=== PATIENT | female | born 1985 | race Caucasian/White ===

== ENCOUNTER → 2016-03-23 | Outpatient (CLI) | payer OTHER ==
[~2016-03-23] MED LIST: ALBU17IN INH; Escitalopram Oxalate PO; FLUD1TA PO; HUMA100I5 SC; INSUDET SC; LANTINJ4 SC; LEVE1INJ5 SC; MAG400TA PO; MIDO5TA PO; MIRT30TA3 PO; NEUR100C PO; POTA10CA PO; TRAZ50TA4 PO; VENL75TA2 PO; VITMTA PO
--- NOTE | 2016-03-23 20:54 | REP ---
Clinical: Lower back pain . Technique: AP, lateral, bilateral oblique, and coned-down views. Findings: Alignment and lordosis is maintained. The vertebral bodies including transverse process and spinous processes are intact and normal. There is no evidence for acute fracture / compression injury or subluxation. No evidence for spondylolysis or spondylolisthesis. No significant degenerative change is noted. Impression: Normal lumbosacral spine radiograph series. Signed by Esteban Connolly MD 03/23/2016 08:45 P
--- NOTE | 2016-03-23 21:03 | REP ---
Clinical: thoracic back pain. Technique: AP, lateral, and swimmers views. Findings: Alignment and kyphosis is maintained. Vertebral bodies intact. No acute fracture / compression injury or subluxation. No degenerative changes. Paravertebral soft tissues are normal. Impression: Normal thoracic spine series. Signed by Esteban Connolly MD 03/23/2016 08:55 P
== END ==
LOC: M LRY 15:47
PROVIDERS: ATTEND Family Medicine
DX: M54.5 Low back pain (principal); G89.29 Other chronic pain

== ENCOUNTER → 2016-03-29 | Outpatient (CLI) | payer OTHER ==
--- NOTE | 2016-03-29 16:33 | REP ---
KUB: Single view: History: Foreign body in the colon. Findings: The bowel gas pattern is normal. No opaque foreign body is appreciated. There is air and stool in a nondistended colon. No small or large bowel dilation is seen. Flank stripes are intact. Impression: Normal bowel gas pattern. No opaque foreign body seen. Signed by Gilbert Blunt MD 03/29/2016 04:35 P
== END ==
LOC: M RAD 15:21
PROVIDERS: ATTEND Internal Medicine Gastroenterology
DX: T18.4XXA Foreign body in colon, initial encounter (principal); X58.XXXA Exposure to other specified factors, initial encounter

== ENCOUNTER → 2016-04-13 | Outpatient (CLI) | payer OTHER ==
[2016-04-13 17:14] LABS: ANION GAP 6 MEQ/L (8-16); BLOOD UREA NITROGEN 26 MG/DL (7-18); CALCIUM LEVEL 9.6 MG/DL (8.5-10.1); CARBON DIOXIDE LEVEL 34 MEQ/L (21-32); CHLORIDE LEVEL 102 MEQ/L (98-107); CREATININE FOR GFR 0.67 MG/DL (0.55-1.02); GLOMERULAR FILTRATION RATE > 60.0 (>60); GLUCOSE, FASTING 117 MG/DL (70-105); POTASSIUM SERUM 3.7 MEQ/L (3.5-5.1); SODIUM LEVEL 142 MEQ/L (136-145)
== END ==
LOC: M LAB 15:59
PROVIDERS: ATTEND Internal Medicine Endocrinology, Diabetes & Metabolism
DX: E22.0 Acromegaly and pituitary gigantism (principal)

== ENCOUNTER → 2016-04-14 | Outpatient (CLI) | payer OTHER ==
--- NOTE | 2016-04-14 14:37 | REP ---
MR BRAIN WITHOUT AND WITH CONTRAST: HISTORY: Acromegaly. Contrast: ProHance 5 mL. There are no areas of abnormal signal intensity in the brain. There is no intraparenchymal hemorrhage, infarct, mass or midline shift. There is no abnormal enhancement. The ventricular system is normal in appearance. There is no extracerebral collection. The pituitary gland is normal in size and signal intensity. The pituitary gland measures 6.0 mm in height. There is homogeneous enhancement with contrast. The infundibulum is midline. The cavernous sinuses, optic chiasm and hypothalamus are normal in appearance. Mucosal thickening is present in the ethmoid, sphenoid, and right maxillary sinuses. IMPRESSION: There is no intracranial lesion. Signed by Thomas Elaine MD 04/14/2016 02:41 P
== END ==
LOC: M RAD 12:45
PROVIDERS: ATTEND Internal Medicine Endocrinology, Diabetes & Metabolism
DX: E22.0 Acromegaly and pituitary gigantism (principal)

== ENCOUNTER → 2016-07-05 | Outpatient (CLI) | payer OTHER ==
[2016-07-05 15:57] LABS: FREE T4 0.96 NG/DL (0.76-1.46); THYROXINE (T4) 5.2 UG/DL (4.5-12.0)
== END ==
LOC: M LAB 14:44
PROVIDERS: ATTEND Internal Medicine Endocrinology, Diabetes & Metabolism
DX: E27.40 Unspecified adrenocortical insufficiency (principal); E03.9 Hypothyroidism, unspecified

== ENCOUNTER → 2016-07-12 | Outpatient (CLI) | payer OTHER ==
[2016-07-12 13:25] LABS: BASO # 0.1 K/mm3 (0.0-0.2); BASO % 0.3 % (0.0-1.0); EOS # 0.8 K/mm3 (0.0-0.50); EOS % 4.2 % (0.0-3.0); LARGE UNSTAINED CELL # 0.3 K/mm3 (0.0-0.4); LARGE UNSTAINED CELL % 1.6 % (0.0-4.0); LYMPH # 4.3 K/mm3 (1.5-4.5); MEAN CORPUSCULAR HEMOGLOBIN 30.1 pg (27.0-33.0); MEAN CORPUSCULAR HGB CONC 33.5 g/dl (32.0-36.5); MEAN CORPUSCULAR VOLUME 89.8 fl (80.0-96.0); MONO # 0.9 K/mm3 (0.0-0.8); NEUTROPHILS # 11.7 K/mm3 (1.8-7.7); NEUTROPHILS % 65.9 % (36.0-66.0); PLATELET COUNT, AUTOMATED 255 k/mm3 (150-450); RED CELL DISTRIBUTION WIDTH 12.3 % (11.5-14.5); WHITE BLOOD COUNT 17.7 K/mm3 (4.0-10.0)
[2016-07-12 13:47] LABS: ALBUMIN 3.3 GM/DL (3.2-5.2); ALBUMIN/GLOBULIN RATIO 0.89 (1.00-1.93); ALKALINE PHOSPHATASE 95 U/L (45-117); ALT/SGPT 51 U/L (12-78); ANION GAP 6 MEQ/L (8-16); AST/SGOT 19 U/L (15-37); BILIRUBIN,TOTAL 0.4 MG/DL (0.2-1.0); BLOOD UREA NITROGEN 28 MG/DL (7-18); CALCIUM LEVEL 8.8 MG/DL (8.5-10.1); CARBON DIOXIDE LEVEL 34 MEQ/L (21-32); CHLORIDE LEVEL 98 MEQ/L (98-107); CREATININE FOR GFR 0.86 MG/DL (0.55-1.02); GLOMERULAR FILTRATION RATE > 60.0 (>60); GLUCOSE, FASTING 204 MG/DL (70-105); SODIUM LEVEL 138 MEQ/L (136-145)
== END ==
LOC: M LAB 12:43
PROVIDERS: ATTEND Family Medicine
DX: T78.40XA Allergy, unspecified, initial encounter (principal)

== ENCOUNTER → 2016-09-30 | Outpatient (REF) | payer OTHER ==
[~2016-09-30] MED LIST changes: +BASA100I SC; +CLON0.5T PO; +FLUD0.1T PO; -FLUD1TA PO; +FLUV100T2 PO; +INSUHUMDS SC; +METO10TA2 PO; +MIDO2.5T PO; +QUET5TAB PO; +SUCR1TA PO; +TRAZ50TA11 PO; -TRAZ50TA4 PO
[2016-09-30 14:42] LABS: ANION GAP 6 MEQ/L (8-16); BLOOD UREA NITROGEN 34 MG/DL (7-18); CARBON DIOXIDE LEVEL 33 MEQ/L (21-32); CHLORIDE LEVEL 98 MEQ/L (98-107); GLOMERULAR FILTRATION RATE > 60.0 (>60); GLUCOSE, FASTING 260 MG/DL (70-105); POTASSIUM SERUM 4.3 MEQ/L (3.5-5.1); SODIUM LEVEL 137 MEQ/L (136-145)
== END ==
LOC: M SFHCLERA 11:13
PROVIDERS: ATTEND Family Medicine
DX: R60.9 Edema, unspecified (principal); I95.9 Hypotension, unspecified

== ENCOUNTER 2016-11-23 08:50 | Inpatient (IN) | payer MEDICAID, OTHER, SELFPAY ==
[~2016-11-23] VITALS: Ht 167.6 cm; Wt 71.9 kg
[~2016-11-23 08:50] MED LIST changes: -BASA100I SC; -CLON0.5T PO; -FLUV100T2 PO; -INSUHUMDS SC; -METO10TA2 PO; -MIDO2.5T PO; -QUET5TAB PO; -SUCR1TA PO
[2016-11-23] MEDS ORDERED: FLUV100T2 PO (09:11)
[2016-11-23] MEDS ORDERED: FLUD0.1T PO (09:11)
[2016-11-23] MEDS ORDERED: QUET5TAB PO (09:11)
[2016-11-23] MEDS ORDERED: BASA100I SC (09:11)
[2016-11-23] MEDS ORDERED: NS 1,000 ML IV ONE ×2 (09:45→13:15)
[2016-11-23 09:58] LABS: VENOUS O2 SATURATION 65.9 % (60.0-80.0); VENOUS PARTIAL PRESSURE O2 34.9 mmHg (30.0-50.0); VENOUS STANDARD HCO3 28.1 MEQ/L; VENOUS TOTAL CO2 32.3 MEQ/L (24.0-28.0)
[2016-11-23] MEDS ORDERED: PROMETHAZINE INJ 25 MG/ML VIAL (J2550) IV ONE (10:00)
[2016-11-23 10:02] LABS: BASO % 0.1 % (0.0-1.0); EOS # 0.2 K/mm3 (0.0-0.50); EOS % 0.9 % (0.0-3.0); LARGE UNSTAINED CELL # 0.1 K/mm3 (0.0-0.4); LARGE UNSTAINED CELL % 0.3 % (0.0-4.0); LYMPH # 0.9 K/mm3 (1.5-4.5); LYMPH % 5.1 % (24.0-44.0); MEAN CORPUSCULAR HEMOGLOBIN 29.7 pg (27.0-33.0); MEAN CORPUSCULAR VOLUME 87.5 fl (80.0-96.0); MONO # 0.5 K/mm3 (0.0-0.8); MONO % 2.8 % (0.0-5.0); NEUTROPHILS # 16.1 K/mm3 (1.8-7.7); NEUTROPHILS % 90.7 % (36.0-66.0); PLATELET COUNT, AUTOMATED 253 k/mm3 (150-450); RED CELL DISTRIBUTION WIDTH 11.9 % (11.5-14.5); WHITE BLOOD COUNT 17.7 K/mm3 (4.0-10.0)
[2016-11-23 11:08] LABS: CONTROL LINE HCG INT CTR LINE PRESENT
[2016-11-23 11:18] LABS: ALBUMIN 3.5 GM/DL (3.2-5.2); ALBUMIN/GLOBULIN RATIO 0.95 (1.00-1.93); ALKALINE PHOSPHATASE 84 U/L (45-117); ALT/SGPT 22 U/L (12-78); ANION GAP 14 MEQ/L (8-16); AST/SGOT 12 U/L (15-37); BILIRUBIN,DIRECT 0.1 MG/DL (0.0-0.2); BILIRUBIN,TOTAL 0.5 MG/DL (0.2-1.0); BLOOD UREA NITROGEN 28 MG/DL (7-18); CALCIUM LEVEL 8.3 MG/DL (8.5-10.1); CARBON DIOXIDE LEVEL 29 MEQ/L (21-32); CHLORIDE LEVEL 101 MEQ/L (98-107); CREATININE FOR GFR 0.93 MG/DL (0.55-1.02); GLOMERULAR FILTRATION RATE > 60.0 (>60); GLUCOSE, FASTING 186 MG/DL (70-105); POTASSIUM SERUM 3.5 MEQ/L (3.5-5.1); SODIUM LEVEL 144 MEQ/L (136-145); TOTAL PROTEIN 7.2 GM/DL (6.4-8.2)
[2016-11-23] MEDS ORDERED: ISOVUE-370 76% 100ML VIAL (Q9967) As Ordered ONE (12:02)
[2016-11-23] MEDS ORDERED: PANTOPRAZOLE 40MG INJ (PROTONIX) (C9113) IV ONE (13:00)
[2016-11-23] MEDS ORDERED: ONDANSETRON 4MG/2ML VIAL (J2405) IV ONE (13:15)
[2016-11-23] MEDS ORDERED: INSUHUMDS SC (15:18)
[2016-11-23] MEDS ORDERED: CLON0.5T PO (15:18)
[2016-11-23] MEDS ORDERED: ALBU17IN INH (15:18)
[2016-11-23] MEDS: NS 1,000 ML IV SCH (16:50)
[2016-11-23] MEDS ORDERED: clonazePAM 0.5 MG TAB PO PRN (17:00)
[2016-11-23] MEDS ORDERED: ACETAMINOPHEN TAB 650MG DOSE (2X325MG) PO PRN (17:00)
[2016-11-23] MEDS ORDERED: GLUCOSE 4 GM CHEW TABLET PO PRN (17:00)
[2016-11-23] MEDS ORDERED: GLUCAGON FOR INJ 1 MG VIAL (J1610) SC PRN (17:00)
[2016-11-23] MEDS ORDERED: ALBUTEROL 90 MCG/ACT 8GM HFA INHALER INH PRN (17:00)
[2016-11-23] MEDS ORDERED: DEXTROSE 50% 50 ML SYRINGE IV PRN (17:00)
[2016-11-23] MEDS: HumaLOG INSULIN (NovoLOG) PER UNIT SC SCH ×2 (17:30→21:00)
--- NOTE | 2016-11-23 18:05 | REP ---
CT abdomen pelvis with IV but without oral contrast: History: Abdominal pain. CT contrast dose: 100 ml of Isovue [address] findings: Preliminary digital air pollution specialist radiograph demonstrates a dextroconvex curvature. Bowel gas pattern is normal. The lung bases are clear. The liver and the spleen are normal in size and homogeneous in texture. There is fluid in the distal esophagus consistent with reflux at the time of the exam. Some left coronary artery vascular calcification is observed in this young woman. The gallbladder is unremarkable. There are calcifications within the head and body of the pancreas consistent with chronic pancreatitis. No pancreatic mass or pseudocyst is seen. The kidneys enhance symmetrically and are morphologically intact. No adrenal lesion is seen on either side. Normal caliber aorta is noted. Small and large intestinal bowel loops are unremarkable. A normal appendix is seen medial to the cecal tip. There are low density areas in the cervix consistent with Nabothian cysts. No uterine masses seen. There is a 5.9 x 5.0 x 5.8 cm cystic enlargement of the left ovary. Right ovary is unremarkable. No abdominal wall defect is seen. No pelvic mass or adenopathy is seen. Bone window settings show no bony destructive lesion. Impression: 1. Calcifications in the pancreas suggesting chronic pancreatitis. 2. Fluid within the distal esophagus question reflux. 3. Coronary artery vascular calcifications seen in this young woman. 4. 5.9 cm cystic enlargement left ovary. Signed by Gilbert Blunt MD 11/24/2016 07:59 A
--- NOTE | 2016-11-23 18:16 | HPEPDOC ---
General Date of Admission Nov 23, 2016 at 15:55 Primary Care Physician: DEBBIE DIAZ MD Attending Physician: GLORIA LUTHER MD Chief Complaint The patient is a 30-year-old female admitted with a reason for visit of Intractable Vomiting. Source: Patient, Family, RN notes reviewed, Old records Exam Limitations: No limitations Timing/Duration: Day(s) (2 days) Associated Symptoms: Chills, Loss of appetite, Nausea, Vomiting, Weakness History of Present Illness Ms. Moore is a 30 year old female who presents to [facility] Department with nausea and vomiting. She is accompanied by her mother. Past medical history is significant for diabetes mellitus type I diagnosed in 2016, hypotension, anxiety, obsessive-compulsive disorder, asthma, depression, food allergy, history of staphylococcus aureus urinary tract infection, history of streptococcus pneumoniae bacteremia. Patient reports nausea for the last two days and vomiting since 6PM last evening. She reports cyclic, forceful vomiting every 15 minutes since its onset. She describes the vomitus as brown to clear in color without visible blood. She denies changes to her diet. Has been unable to keep any liquids, foods, or medications down. Weight has remained stable. Also admits to diffuse , crampy, and intermittent abdominal pain that started two days ago. She reports regular bowel movements without noticing visible blood. She does report an episode of non-bloody diarrhea that lasted a few weeks about one and a half months ago. Her mother had similar symptoms, but hers only lasted a couple of days. Between the cessation of the diarrhea and the initiation of the nausea the patient reports good health. Denies fever, but reports feeling warm, clammy, having night sweats, and having chills. Also describes an intermittent headache. Admits to low back pain. Besides positive review of systems listed above, all other review of systems were negative. Patient reports a diagnosis of diabetes mellitus that was made in 2016. Her mother reports that she was in a "coma", but eventually recovered. In the time since her diagnosis her mother reports that her daughter has had an extensive endocrinological and gastrointestinal work-up, but it has thus far been negative. She also reports that her daughter had cessation of her menstrual cycle, but that has since returned and she has had regular menstrual cycles for the last several months. They have been regular as they were before the diagnosis of diabetes. Mother also reports that her daughter lost a significant amount of weight (40 pounds) after the diagnosis of her diabetes. She was questioned regarding an eating disorder which she refutes. Before the diagnosis of diabetes the patient had recently moved to [place] and retained an apartment. She subsequently became ill and has since not been back to [place] permanently. It is the hope that patient's health improves and she is able to return to [place]. Hospitalist service was consulted and patient was admitted for further medical management. Home Medications Scheduled (Basaglar Kwikpen) 100 Unit/Ml Inj, 15 UNITS SC QAM, (Reported) Fludrocortisone Acetate (Fludrocortisone Acetate) 0.1 Mg Tab, 0.5 TAB PO 1XWK, ( Reported) THURSDAYS Fluvoxamine Maleate (Fluvoxamine Maleate) 100 Mg Tab, 100 MG PO QHS, (Reported) Insulin Human Lispro (Humalog) 1 Units/0.01 Ml Inj, 1 DOSE SC AC, (Reported) PER SLIDING SCALE Quetiapine Fumerate (Quetiapine Fumarate) 50 Mg Tab, 50 MG PO QHS, (Reported) Scheduled PRN Albuterol Sulfate (Ventolin Hfa) 200 Puff/8 Gm Aers, 2 PUFF INH Q4H PRN for SHORTNESS OF BREATH, (Reported) Clonazepam (Clonazepam) 0.5 Mg Tab, 0.5 MG PO BID PRN for ANXIETY, (Reported) Allergies Coded Allergies: Egg Yolk (Unverified Allergy, Intermediate, Rash, 12/04/15) Bee Venom (Unverified Allergy, Unknown, 07/31/15) Insulin Glargine (Unverified Allergy, Unknown, SKIN RASH, 11/23/16) FROM [facility] INSULIN NUTS (Unverified Allergy, Unknown, 07/31/15) Shellfish Allergy (Unverified Allergy, Unknown, 07/31/15) Past Medical History Medical History 1. Diabetes mellitus, type I 2. Hypotension 3. Anxiety 4. Depression 5. Obsessive-compulsive disorder 6. Asthma 7. Food allergy 8. History of Staphylococcus aureus urinary tract infection 9. History of Streptococcus pneumoniae bacteremia Surgical History 1. Adenoidectomy 2. Tympanostomy tubes 3. Sinus surgery 4. Transthoracic echocardiogram 5. Triple lumen catheter insertion and subsequent removal Family History Father: Alive, diabetes mellitus, type II Mother: Alive, healthy No reported autoimmune disorders Social History Lives independently with parents Has apartment in [place] Diabetes managed at the [facility] Denies tobacco use Denies alcohol use Denies illicit drug use Denies travel Review of Symptoms Constitutional: Reports: Chills, Night Sweats, Weakness, Denies: Fever, Weight Loss Eyes: Denies: Pain, Vision change, Conjunctivae inflammation, Eyelid inflammation, Redness ENT: Reports: Head Aches, Sore Throat (from vomiting), Denies: Dysphagia, Sinus Congestion, Post Nasal Drip, Epistaxis Skin: Reports: Dry, Other (multiple excoriations on upper and lower extremities , ), Denies: Rash, Lesions, Jaundice Pulmonary: Denies: Dyspnea, Cough, Pleuritic Chest Pain Cardiovascular: Reports: Edema (bilateral ankles), Denies: Chest Pain, Palpitations, Orthopnea, Paroxysmal Noc. Dyspnea, Lt Headedness Gastrointestinal: Reports: Nausea, Vomiting, Abdominal Pain (diffuse, intermittent), Denies: Diarrhea, Constipation, Melena, Hematochezia Genitourinary: Denies: Dysuria, Frequency, Incontinence, Hematuria, Retention Hematologic: Denies: Bruising, Bleeding Excessively, Petecchia, Purpura Endocrine: Denies: Polydipsia, Polyphagia, Polyuria Musculoskeletal: Reports: Back Pain, Denies: Neck Pain, Joint Pain, Muscle Pain Neurological: Reports: Weakness, Denies: Numbness Physical Examination General Exam: Positive: Alert, Cooperative Eye Exam: Positive: PERRLA, Conjunctiva & lids normal, EOMI, Negative: Sclera icteric, Ptosis ENT Exam: Positive: Atraumatic, Mucous membr. moist/pink, Pharynx Normal, Tongue Midline, Nares Patent, Negative: Pharyngeal Edema Neck Exam: Positive: Supple, +2 carotid pulse wo bruit, Negative: JVD, thyromegaly, Lymphadenopathy Chest Exam: Positive: Clear to auscultation, Normal air movement Heart Exam: Positive: Rate Normal, Tachycardic, Normal S1, Normal S2, Negative: Gallops, Murmurs, Rubs Telemetry: Positive: Tachycardia Abdomen Exam: Positive: Normal bowel sounds, Soft, Tenderness (to palpitation) , Negative: Hepatospenomegaly, Mass, Hernia Extremity Exam: Positive: Normal pulses, Negative: Clubbing, Cyanosis, Edema, Tenderness, Swelling Skin Exam: Positive: Other skin issue (excoriations on upper and lower extremities, brown-mahoney appearance to skin) Neuro Exam: Positive: Normal Speech, Strength at 5/5 X4 ext, Cranial Nerves 3- 12 NL Vital Signs Vital Signs Date Time Temp Pulse Resp B/P (MAP) Pulse Ox O2 Delivery O2 Flow Rate FiO2 11/23/16 12:11 99.7 11/23/16 10:12 18 98 11/23/16 09:04 112 Height (in): 63.64 Laboratory Data Labs 24H Laboratory Tests 2 11/23/16 09:44: White Blood Count 17.7H, Red Blood Count 4.39, Hemoglobin 13.1, Hematocrit 38.4 , Mean Corpuscular Volume 87.5, Mean Corpuscular Hemoglobin 29.7, Mean Corpuscular Hemoglobin Concent 34.0, Red Cell Distribution Width 11.9, Platelet Count 253, Neutrophils (%) (Auto) 90.7H, Lymphocytes (%) (Auto) 5.1L, Monocytes (%) (Auto) 2.8, Eosinophils (%) (Auto) 0.9, Basophils (%) (Auto) 0.1, Neutrophils # (Auto) 16.1H, Lymphocytes # (Auto) 0.9L, Monocytes # (Auto) 0.5, Eosinophils # (Auto) 0.2, Basophils # (Auto) 0.0, Large Unclassified Cells % 0.3 , Large Unclassified Cells # 0.1, Blood Gas Bicarbonate Standard 28.1, Venous Blood pH 7.407, Venous Blood Partial Pressure CO2 50.0, Venous Blood Partial Pressure O2 34.9, Venous Blood Total Carbon Dioxide 32.3H, Venous Blood HCO3 30.8H, Venous Blood Oxygen Saturation 65.9, Venous Blood Base Excess 5.0H 11/23/16 10:38: Anion Gap 14, Glomerular Filtration Rate > 60.0, Calcium Level 8.3L, Aspartate Amino Transf (AST/SGOT) 12L, Alanine Aminotransferase (ALT/SGPT) 22, Alkaline Phosphatase 84, Total Bilirubin 0.5, Direct Bilirubin 0.1, Total Protein 7.2, Albumin 3.5, Albumin/Globulin Ratio 0.95L, Lipase 42L, Human Chorionic Gonadotropin, Qual NEGATIVE CBC/BMP Laboratory Tests 11/23/16 09:44 Red Blood Count 4.39, Mean Corpuscular Volume 87.5, Mean Corpuscular Hemoglobin 29.7, Mean Corpuscular Hemoglobin Concent 34.0, Red Cell Distribution Width 11.9 , Neutrophils (%) (Auto) 90.7 H, Lymphocytes (%) (Auto) 5.1 L, Monocytes (%) ( Auto) 2.8, Eosinophils (%) (Auto) 0.9, Basophils (%) (Auto) 0.1, Neutrophils # ( Auto) 16.1 H, Lymphocytes # (Auto) 0.9 L, Monocytes # (Auto) 0.5, Eosinophils # (Auto) 0.2, Basophils # (Auto) 0.0 11/23/16 10:38 Assessment/Plan This is a 30-year-old female with a past medical history is significant for diabetes mellitus type I diagnosed in 2016, hypotension, anxiety , obsessive-compulsive disorder, asthma, depression, food allergy, history of staphylococcus aureus urinary tract infection, history of streptococcus pneumoniae bacteremia who presents with nausea and vomiting. Etiology unclear at this time. Plan / VTE VTE Prophylaxis Ordered?: Yes (TEDs, sequentials, knee high compression, heparin 5,000 units SC every 8 hours) Plan Plan Nausea and vomiting Unclear etiology at this time. Evaluating for underlying celiac disease. Obtaining GI panel. Ordered gastrointestinal small bowel follow-through to evaluate for underlying gastroparesis. Could consider obtaining out-patient EGD and colonoscopy to evaluate for crohn's disease / ulcerative colitis. Obtain LFTs. Obtain orthostatic VS. Obtain iron studies. Obtain TSH. Obtain lactic acid. Provide zofran and compazine as needed for nausea. NPO for the time being. NS @ 75 mLs/hr for rehydration. SIRS Tachycardia and leukocytosis without known infection at this time. Obtain urinalysis and culture. Obtain blood cultures. Diabetes mellitus, type I SSI and hypoglycemic protocol. Hypotension Continue current home medication regimen of fludrocortisone. Anxiety/depression Continue current home medications of fluvoxamine and seroquel. Asthma Continue current home medication of proventil. Disposition Admit: Medical-surgical unit Anticipated hospitalization: 2 nights Attending: Dr. Valerio IVF: Initiate (NS @ 75 mLs/hr) Diet: Make NPO Activity: Continue Current (OOB ad pamela to chair with assistance) Diagnostics: Check Labs, Repeat Labs in AM, Nuclear Med Study Anticipated Discharge: Home GIUSEPPE BALLESTEROS Nov 23, 2016 18:16
[2016-11-23 19:08] LABS: VITAMIN B12 LEVEL 838 PG/ML
[2016-11-23 19:09] LABS: FERRITIN 44 NG/ML (8-252); FOLATE > 24.0 NG/ML; PERCENT SATURATION 7.1 % (13.2-45.0); TOTAL IRON BINDING CAPACITY 353 UG/DL (250-450)
[2016-11-23] MEDS: fluvoxaMINE MALEATE 50 MG TAB PO SCH (21:00)
[2016-11-23] MEDS: QUEtiapine FUMARATE 50 MG TAB PO SCH (21:00)
[2016-11-23] MEDS: HEPARIN SOD (PORCINE) 5000 UNITS/ML VIAL SC SCH (21:48)
[2016-11-23 22:20] VITALS: BP 119/70
[2016-11-23] MEDS: ONDANSETRON 4MG/2ML VIAL (J2405) IV PRN (22:33)
[2016-11-24 02:00] VITALS: BP 108/57
[2016-11-24] MEDS: HEPARIN SOD (PORCINE) 5000 UNITS/ML VIAL SC SCH ×4 (05:09→21:16)
[2016-11-24 06:00] VITALS: BP 101/55
[2016-11-24] MEDS: NS 1,000 ML IV SCH (06:10)
[2016-11-24 07:05] LABS: BASO % 0.2 % (0.0-1.0); EOS # 0.1 K/mm3 (0.0-0.50); EOS % 0.9 % (0.0-3.0); LARGE UNSTAINED CELL # 0.3 K/mm3 (0.0-0.4); LARGE UNSTAINED CELL % 1.8 % (0.0-4.0); LYMPH # 2.9 K/mm3 (1.5-4.5); LYMPH % 20.1 % (24.0-44.0); MEAN CORPUSCULAR HEMOGLOBIN 30.3 pg (27.0-33.0); MEAN CORPUSCULAR HGB CONC 34.6 g/dl (32.0-36.5); MEAN CORPUSCULAR VOLUME 87.7 fl (80.0-96.0); MONO # 0.9 K/mm3 (0.0-0.8); MONO % 6.2 % (0.0-5.0); NEUTROPHILS # 10.4 K/mm3 (1.8-7.7); NEUTROPHILS % 70.9 % (36.0-66.0); PLATELET COUNT, AUTOMATED 236 k/mm3 (150-450); RED CELL DISTRIBUTION WIDTH 12.3 % (11.5-14.5); WHITE BLOOD COUNT 14.6 K/mm3 (4.0-10.0)
[2016-11-24 07:26] LABS: ALBUMIN 2.7 GM/DL (3.2-5.2); ALBUMIN/GLOBULIN RATIO 0.73 (1.00-1.93); ALKALINE PHOSPHATASE 66 U/L (45-117); ALT/SGPT 17 U/L (12-78); ANION GAP 11 MEQ/L (8-16); AST/SGOT 13 U/L (15-37); BILIRUBIN,TOTAL 0.3 MG/DL (0.2-1.0); BLOOD UREA NITROGEN 21 MG/DL (7-18); CALCIUM LEVEL 7.5 MG/DL (8.5-10.1); CARBON DIOXIDE LEVEL 29 MEQ/L (21-32); CHLORIDE LEVEL 107 MEQ/L (98-107); CREATININE FOR GFR 0.64 MG/DL (0.55-1.02); GLOMERULAR FILTRATION RATE > 60.0 (>60); GLUCOSE, FASTING 42 MG/DL (70-105); POTASSIUM SERUM 3.1 MEQ/L (3.5-5.1); SODIUM LEVEL 147 MEQ/L (136-145); TOTAL PROTEIN 6.4 GM/DL (6.4-8.2)
[2016-11-24] MEDS: HumaLOG INSULIN (NovoLOG) PER UNIT SC SCH ×4 (07:30→21:00)
[2016-11-24] MEDS ORDERED: KCL 40MEQ IN D5/NS 1000ML 1,000 ML IV SCH (09:00)
[2016-11-24] MEDS: ONDANSETRON 4MG/2ML VIAL (J2405) IV PRN ×3 (10:58→23:55)
[2016-11-24] MEDS: POTASSIUM CHLORIDE INJ 40 MEQ in D5W/0.9% SODIUM CHLORIDE 1,000 ML IV SCH (10:58)
[2016-11-24] MEDS ORDERED: E-Z-HD 98% w/w 340GM SUSP BTL As Ordered ONE (11:45)
[2016-11-24] MEDS ORDERED: E-Z-GAS II EFFERVESCENT PACKET (SODIUM BICARB./CITRIC ACID/SIMETHICONE) As Ordered ONE (11:45)
[2016-11-24] MEDS ORDERED: E-Z-PAQUE 96% w/w SUSP 176GM BTL As Ordered ONE (11:45)
--- NOTE | 2016-11-24 13:41 | IPNPDOC ---
Subjective Date Seen The patient was seen on 11/24/16. Subjective Chief Complaint/HPI The patient is a 30-year-old female admitted with a reason for visit of Intractable Vomiting. Events since last encounter patient could not do the gastric emptying study as she is allergic to egg, could not do the upper Gi follow through as she got nauseas while drinking the barium and then threw up. Will request for the gastric emptying study from [place] , wants to eat something so will start her on diet. Had hypoglycemia this am on dextrose infusion now. Vomited only once since yesterday , no abdominal pain , no diarrhea. Objective Physical Examination General Exam: Positive: Alert, Cooperative Eye Exam: Positive: PERRLA, Conjunctiva & lids normal, EOMI, Negative: Sclera icteric, Ptosis ENT Exam: Positive: Atraumatic, Mucous membr. moist/pink, Pharynx Normal, Tongue Midline, Nares Patent, Negative: Pharyngeal Edema Neck Exam: Positive: Supple, +2 carotid pulse wo bruit, Negative: JVD, thyromegaly, Lymphadenopathy Chest Exam: Positive: Clear to auscultation, Normal air movement Heart Exam: Positive: Rate Normal, Tachycardic, Normal S1, Normal S2, Negative: Gallops, Murmurs, Rubs Telemetry: Positive: Tachycardia Abdomen Exam: Positive: Normal bowel sounds, Soft, Tenderness (to palpitation) , Negative: Hepatospenomegaly, Mass, Hernia Extremity Exam: Positive: Normal pulses, Negative: Clubbing, Cyanosis, Edema, Tenderness, Swelling Skin Exam: Positive: Other skin issue (excoriations on upper and lower extremities, brown-mahoney appearance to skin) Neuro Exam: Positive: Normal Speech, Strength at 5/5 X4 ext, Cranial Nerves 3- 12 NL Assessment /Plan Problems (1) Intractable vomiting Status: Acute Problem Text: may have gastroparesis will get result of previous gastric emptying study from [facility]. continue with zofran and compazine. continue IVF. continue PPI (2) Electrolyte disturbance Status: Acute Problem Text: hypokalemia being replaced. (3) Diabetes Status: Chronic Problem Text: type 1 diabetes diagnosed in 2016 patient hypoglycemic this am will hold long acting insulin for now, start the patient on diet. will continue lispro sliding scale. (4) OCD (obsessive compulsive disorder) Status: Chronic Problem Text: also has anxiety and depression will continue with home medications. (5) Protein-calorie malnutrition Status: Chronic (6) Asthma Status: Chronic (7) Chronic pancreatitis Status: Chronic Problem Text: has pancreatic calcifications in CT abdomen. (8) Neurodermatitis Status: Chronic Plan/VTE VTE Prophylaxis Ordered?: Yes (TEDs, sequentials, knee high compression, heparin 5,000 units SC every 8 hours) Plan IVF: Initiate (NS @ 75 mLs/hr) Diet: Make NPO Activity: Continue Current (OOB ad pamela to chair with assistance) Diagnostics: Check Labs, Repeat Labs in AM, Nuclear Med Study Anticipated Discharge: Home VS, I&O, 24H, Fishbone Vital Signs/I&O Vital Signs Date Time Temp Pulse Resp B/P (MAP) Pulse Ox O2 Delivery O2 Flow Rate FiO2 11/24/16 06:00 99.1 76 16 101/55 (70) 96 Room Air I&O- Last 24 Hours up to 6 AM 11/24/16 06:00 Intake Total 2000 ml Output Total 100 ml Balance 1900 ml Laboratory Data 24H LABS Laboratory Tests 2 11/23/16 14:58: Bedside Glucose (Misc Panel) 122H 11/23/16 17:45: Bedside Glucose (Misc Panel) 105 11/23/16 18:40: Lactic Acid Level 1.2 11/23/16 20:02: Urine Appearance CLOUDYH, Urine Color YELLOW, Urine pH 5.0, Urine Specific [place] 1.047, Urine Protein NEGATIVE, Urine Glucose (UA) NEGATIVE, Urine Ketones 1+H, Urine Urobilinogen 0.2, Urine Bilirubin NEGATIVE, Urine Leukocyte Esterase 3+H, Urine Blood 1+H, Urine Nitrite NEGATIVE, Urine WBC (Auto) TNTCH, Urine RBC (Auto) 4H, Urine Hyaline Casts (Auto) 0, Urine Bacteria (Auto) 1+H, Urine Squamous Epithelial Cells 7, Urine Sperm (Auto) 11/23/16 21:00: Bedside Glucose (Misc Panel) 80 11/24/16 06:53: White Blood Count 14.6H, Red Blood Count 3.70L, Hemoglobin 11.2L, Hematocrit 32.4L, Mean Corpuscular Volume 87.7, Mean Corpuscular Hemoglobin 30.3, Mean Corpuscular Hemoglobin Concent 34.6, Red Cell Distribution Width 12.3, Platelet Count 236, Neutrophils (%) (Auto) 70.9H, Lymphocytes (%) (Auto) 20.1L, Monocytes (%) (Auto) 6.2H, Eosinophils (%) (Auto) 0.9, Basophils (%) (Auto) 0.2 , Neutrophils # (Auto) 10.4H, Lymphocytes # (Auto) 2.9, Monocytes # (Auto) 0.9H , Eosinophils # (Auto) 0.1, Basophils # (Auto) 0.0, Large Unclassified Cells % 1.8, Large Unclassified Cells # 0.3, Anion Gap 11, Glomerular Filtration Rate > 60.0, Blood Urea Nitrogen 21H, Creatinine 0.64, Sodium Level 147H, Potassium Level 3.1L, Chloride Level 107, Carbon Dioxide Level 29, Calcium Level 7.5L, Aspartate Amino Transf (AST/SGOT) 13L, Alanine Aminotransferase (ALT/SGPT) 17, Alkaline Phosphatase 66, Total Bilirubin 0.3, Total Protein 6.4, Albumin 2.7#L, Albumin/Globulin Ratio 0.73L 11/24/16 08:10: Bedside Glucose (Misc Panel) 102 11/24/16 11:48: Bedside Glucose (Misc Panel) 67L CBC/BMP Laboratory Tests 11/24/16 06:53 Red Blood Count 3.70 L, Mean Corpuscular Volume 87.7, Mean Corpuscular Hemoglobin 30.3, Mean Corpuscular Hemoglobin Concent 34.6, Red Cell Distribution Width 12.3, Neutrophils (%) (Auto) 70.9 H, Lymphocytes (%) (Auto) 20.1 L, Monocytes (%) (Auto) 6.2 H, Eosinophils (%) (Auto) 0.9, Basophils (%) ( Auto) 0.2, Neutrophils # (Auto) 10.4 H, Lymphocytes # (Auto) 2.9, Monocytes # ( Auto) 0.9 H, Eosinophils # (Auto) 0.1, Basophils # (Auto) 0.0, Calcium Level 7.5 L, Aspartate Amino Transf (AST/SGOT) 13 L, Alanine Aminotransferase (ALT/ SGPT) 17, Alkaline Phosphatase 66, Total Bilirubin 0.3, Total Protein 6.4, Albumin 2.7 #L Microbiology Microbiology 11/23/16 Blood Culture, Received Pending 11/23/16 Blood Culture, Received Pending 11/23/16 Urine Culture - Final, Complete WILLIAM AVELAR MD Nov 24, 2016 13:41
[2016-11-24 14:00] VITALS: BP 136/71
[2016-11-24] MEDS ORDERED: clonazePAM 1 MG TAB PO PRN (14:30)
[2016-11-24] MEDS: PROCHLORPERAZINE 5 MG TAB (S0183) PO PRN ×2 (14:43→21:13)
--- NOTE | 2016-11-24 17:06 | REP ---
UPPER GI AND SMALL BOWEL FOLLOW THROUGH: The procedure was performed under the direct supervision of Dr. Blunt. The images were reviewed with Dr. Blunt. The lower school music teacher film shows no organomegaly or pathological masses. The intestinal gas pattern is nonspecific. There is IV contrast seen in the bladder. The patient originally stated that she would not be able to drink the contrast but then decided she would give it a try. Once we positioned her on the table she then stated she would not be able to drink the contrast and did not want to continue with the exam. The exam was then discontinued. 8 seconds of fluoroscopy time was utilized for this procedure. Reviewed by JOSE Fink 11/26/2016 04:24 PEdited and Signed by Gilbert Blunt MD 11/26/2016 04:42 P
[2016-11-24 20:00] VITALS: BP 143/81
[2016-11-24] MEDS: QUEtiapine FUMARATE 50 MG TAB PO SCH (21:13)
[2016-11-24] MEDS: fluvoxaMINE MALEATE 50 MG TAB PO SCH (21:13)
[2016-11-25] VITALS: BP_SYST 110; BP_SYST 137; BP_SYST 82; BP_DIAS 43; BP_DIAS 61; BP_DIAS 81
[2016-11-25] MEDS: POTASSIUM CHLORIDE INJ 40 MEQ in D5W/0.9% SODIUM CHLORIDE 1,000 ML IV SCH (03:01)
[2016-11-25] MEDS: PROCHLORPERAZINE 5 MG TAB (S0183) PO PRN ×2 (03:29→21:03)
[2016-11-25 04:00] VITALS: BP_SYST 124; BP_SYST 145; BP_SYST 79; BP_DIAS 52; BP_DIAS 70; BP_DIAS 82
[2016-11-25] MEDS: HEPARIN SOD (PORCINE) 5000 UNITS/ML VIAL SC SCH ×3 (05:27→21:06)
[2016-11-25] MEDS: ONDANSETRON 4MG/2ML VIAL (J2405) IV PRN ×2 (06:44→18:13)
[2016-11-25 07:12] LABS: BASO % 0.2 % (0.0-1.0); EOS # 0.1 K/mm3 (0.0-0.50); EOS % 0.6 % (0.0-3.0); LARGE UNSTAINED CELL # 0.1 K/mm3 (0.0-0.4); LARGE UNSTAINED CELL % 0.9 % (0.0-4.0); LYMPH # 1.6 K/mm3 (1.5-4.5); LYMPH % 12.2 % (24.0-44.0); MEAN CORPUSCULAR HEMOGLOBIN 29.6 pg (27.0-33.0); MEAN CORPUSCULAR VOLUME 89.8 fl (80.0-96.0); MONO # 0.5 K/mm3 (0.0-0.8); MONO % 4.6 % (0.0-5.0); NEUTROPHILS # 9.7 K/mm3 (1.8-7.7); NEUTROPHILS % 81.5 % (36.0-66.0); PLATELET COUNT, AUTOMATED 218 k/mm3 (150-450); RED CELL DISTRIBUTION WIDTH 12.2 % (11.5-14.5); WHITE BLOOD COUNT 11.9 K/mm3 (4.0-10.0)
[2016-11-25 07:36] LABS: ALBUMIN 3.1 GM/DL (3.2-5.2); ALBUMIN/GLOBULIN RATIO 0.89 (1.00-1.93); ALKALINE PHOSPHATASE 75 U/L (45-117); ALT/SGPT 15 U/L (12-78); ANION GAP 12 MEQ/L (8-16); AST/SGOT 13 U/L (15-37); BILIRUBIN,TOTAL 0.4 MG/DL (0.2-1.0); BLOOD UREA NITROGEN 16 MG/DL (7-18); CALCIUM LEVEL 6.9 MG/DL (8.5-10.1); CARBON DIOXIDE LEVEL 26 MEQ/L (21-32); CHLORIDE LEVEL 107 MEQ/L (98-107); CREATININE FOR GFR 0.63 MG/DL (0.55-1.02); GLOMERULAR FILTRATION RATE > 60.0 (>60); GLUCOSE, FASTING 184 MG/DL (70-105); POTASSIUM SERUM 3.8 MEQ/L (3.5-5.1); SODIUM LEVEL 145 MEQ/L (136-145); TOTAL PROTEIN 6.6 GM/DL (6.4-8.2)
[2016-11-25] MEDS: HumaLOG INSULIN (NovoLOG) PER UNIT SC SCH ×4 (08:43→21:00)
[2016-11-25] MEDS ORDERED: FLUDROCORTISONE ACETATE 0.1 MG TAB PO SCH (09:00)
[2016-11-25] MEDS ORDERED: MORPHINE 2 MG/ML 1ML SYRINGE IV PRN (13:15)
--- NOTE | 2016-11-25 13:24 | IPNPDOC ---
Subjective Date Seen The patient was seen on 11/25/16. Subjective Chief Complaint/HPI The patient is a 30-year-old female admitted with a reason for visit of Intractable Vomiting. Events since last encounter continues to have vomiting and retching , Not able to tolerate or diet yet only taking few sips of liquids. Complains of severe abdominal pain constantly present . no fever or chills, no chest pain or sob , no abdominal pain nausea or vomiting. Objective Physical Examination General Exam: Positive: Alert, Cooperative Eye Exam: Positive: PERRLA, Conjunctiva & lids normal, EOMI, Negative: Sclera icteric, Ptosis ENT Exam: Positive: Atraumatic, Mucous membr. moist/pink, Pharynx Normal, Tongue Midline, Nares Patent, Negative: Pharyngeal Edema Neck Exam: Positive: Supple, +2 carotid pulse wo bruit, Negative: JVD, thyromegaly, Lymphadenopathy Chest Exam: Positive: Clear to auscultation, Normal air movement Heart Exam: Positive: Rate Normal, Tachycardic, Normal S1, Normal S2, Negative: Gallops, Murmurs, Rubs Telemetry: Positive: Tachycardia Abdomen Exam: Positive: Normal bowel sounds, Soft, Tenderness (to palpitation) , Negative: Hepatospenomegaly, Mass, Hernia Extremity Exam: Positive: Normal pulses, Negative: Clubbing, Cyanosis, Edema, Tenderness, Swelling Skin Exam: Positive: Other skin issue (excoriations on upper and lower extremities, brown-mahoney appearance to skin) Neuro Exam: Positive: Normal Speech, Strength at 5/5 X4 ext, Cranial Nerves 3- 12 NL Assessment /Plan Problems (1) Orthostatic hypotension Status: Acute Problem Text: due to poor intake and persistent loss will continue with ivf. will give 1 L Ns bolus. (2) Diabetic gastroparesis Status: Chronic Problem Text: had gastric emptying study in may 2016 at [facility] was positive now having an acute attack may also have underlying chronic pancreatitis. (3) Intractable vomiting Status: Acute Problem Text: due gastroparesis continue with zofran and compazine will also start metoclopramide. continue IVF. continue PPI (4) Electrolyte disturbance Status: Acute Problem Text: hypokalemia being replaced. (5) Diabetes Status: Chronic Problem Text: type 1 diabetes diagnosed in 2016 patient hypoglycemic this am will hold long acting insulin for now, will continue lispro sliding scale. Still not able to eat solid food. (6) OCD (obsessive compulsive disorder) Status: Chronic Problem Text: also has anxiety and depression will continue with home medications. (7) Protein-calorie malnutrition Status: Chronic (8) Asthma Status: Chronic (9) Chronic pancreatitis Status: Chronic Problem Text: has pancreatic calcifications in CT abdomen. will give IV morphine prn. 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 Plan/VTE VTE Prophylaxis Ordered?: Yes (TEDs, sequentials, knee high compression, heparin 5,000 units SC every 8 hours) Plan IVF: Initiate (NS @ 75 mLs/hr) Diet: Make NPO Activity: Continue Current (OOB ad pamela to chair with assistance) Diagnostics: Check Labs, Repeat Labs in AM, Nuclear Med Study Anticipated Discharge: Home VS, I&O, 24H, [facility] Vital Signs/I&O Vital Signs Date Time Temp Pulse Resp B/P (MAP) Pulse Ox O2 Delivery O2 Flow Rate FiO2 11/25/16 04:00 103 124/70 (88) 11/25/16 04:00 99.3 18 95 Room Air I&O- Last 24 Hours up to 6 AM 11/25/16 06:00 Intake Total 1980 ml Output Total 20 ml Balance 1960 ml Laboratory Data 24H LABS Laboratory Tests 2 11/24/16 16:35: Bedside Glucose (Misc Panel) 99 11/24/16 20:51: Bedside Glucose (Misc Panel) 132H 11/25/16 06:44: White Blood Count 11.9H, Red Blood Count 3.78L, Hemoglobin 11.2L, Hematocrit 34.0L, Mean Corpuscular Volume 89.8, Mean Corpuscular Hemoglobin 29.6, Mean Corpuscular Hemoglobin Concent 33.0, Red Cell Distribution Width 12.2, Platelet Count 218, Neutrophils (%) (Auto) 81.5H, Lymphocytes (%) (Auto) 12.2L, Monocytes (%) (Auto) 4.6, Eosinophils (%) (Auto) 0.6, Basophils (%) (Auto) 0.2, Neutrophils # (Auto) 9.7H, Lymphocytes # (Auto) 1.6, Monocytes # (Auto) 0.5, Eosinophils # (Auto) 0.1, Basophils # (Auto) 0.0, Large Unclassified Cells % 0.9 , Large Unclassified Cells # 0.1, Anion Gap 12, Glomerular Filtration Rate > 60.0, Blood Urea Nitrogen 16, Creatinine 0.63, Sodium Level 145, Potassium Level 3.8#, Chloride Level 107, Carbon Dioxide Level 26, Calcium Level 6.9L, Aspartate Amino Transf (AST/SGOT) 13L, Alanine Aminotransferase (ALT/SGPT) 15, Alkaline Phosphatase 75, Total Bilirubin 0.4, Total Protein 6.6, Albumin 3.1L, Albumin/Globulin Ratio 0.89L 11/25/16 11:54: Bedside Glucose (Misc Panel) 149H CBC/BMP Laboratory Tests 11/25/16 06:44 Red Blood Count 3.78 L, Mean Corpuscular Volume 89.8, Mean Corpuscular Hemoglobin 29.6, Mean Corpuscular Hemoglobin Concent 33.0, Red Cell Distribution Width 12.2, Neutrophils (%) (Auto) 81.5 H, Lymphocytes (%) (Auto) 12.2 L, Monocytes (%) (Auto) 4.6, Eosinophils (%) (Auto) 0.6, Basophils (%) ( Auto) 0.2, Neutrophils # (Auto) 9.7 H, Lymphocytes # (Auto) 1.6, Monocytes # ( Auto) 0.5, Eosinophils # (Auto) 0.1, Basophils # (Auto) 0.0, Calcium Level 6.9 L , Aspartate Amino Transf (AST/SGOT) 13 L, Alanine Aminotransferase (ALT/SGPT) 15 , Alkaline Phosphatase 75, Total Bilirubin 0.4, Total Protein 6.6, Albumin 3.1 L Microbiology Microbiology 11/23/16 Blood Culture - Preliminary, Resulted No growth after 24 hours . All specim... 11/23/16 Blood Culture - Preliminary, Resulted No growth after 24 hours . All specim... 11/23/16 Urine Culture - Final, Complete WILLIAM AVELAR MD Nov 25, 2016 13:24
[2016-11-25] MEDS ORDERED: NS 1,000 ML IV ONE (13:30)
[2016-11-25] MEDS: METOCLOPRAMIDE INJ 10MG/2ML VIAL (J2765) IV SCH ×2 (18:16→22:57)
[2016-11-25 20:00] VITALS: BP 113/66
[2016-11-25] MEDS: fluvoxaMINE MALEATE 50 MG TAB PO SCH (21:00)
[2016-11-25] MEDS: QUEtiapine FUMARATE 50 MG TAB PO SCH ×2 (21:00→21:05)
[2016-11-25] MEDS: KCL 40MEQ IN D5/NS 1000ML 1,000 ML IV SCH (21:04)
[2016-11-25] MEDS: PANTOPRAZOLE 40MG INJ (PROTONIX) (C9113) IV SCH (21:05)
[2016-11-25 21:10] LABS: IONIZED CALCIUM 3.9 MG/DL (4.5-5.3)
[2016-11-25 21:34] LABS: CALCIUM LEVEL 7.3 MG/DL (8.5-10.1)
[2016-11-25] MEDS ORDERED: CALCIUM CARBONATE 500 MG CHEW U/D PO ONE (23:00)
[2016-11-25] MEDS ORDERED: FAMOTIDINE 20 MG TAB PO ONE (23:45)
[2016-11-26 00:06] LABS: ENDOMYSIAL ABY IgA Negative (Negative)
[2016-11-26 00:55] VITALS: BP 113/66
[2016-11-26] MEDS ORDERED: MAG SULF 1GM/100ML (MAG RUN) 1 GM in APPROPRIATE DILUENT 1 EA IV ONE (01:00)
[2016-11-26] MEDS ORDERED: CALCIUM GLUCONATE 1,000 MG in D5W MINI-BAG PLUS 100 ML IV ONE ×2 (04:30→22:30)
[2016-11-26] MEDS: MAG SULF 1GM/100ML (MAG RUN) 1 GM in APPROPRIATE DILUENT 1 EA IV SCH ×2 (04:56→07:24)
[2016-11-26] MEDS: HEPARIN SOD (PORCINE) 5000 UNITS/ML VIAL SC SCH ×3 (05:44→21:22)
[2016-11-26 06:00] VITALS: BP 150/91
[2016-11-26] MEDS: METOCLOPRAMIDE INJ 10MG/2ML VIAL (J2765) IV SCH ×3 (06:05→21:22)
[2016-11-26 07:18] LABS: ALT/SGPT 16 U/L (12-78); ANION GAP 11 MEQ/L (8-16); AST/SGOT 12 U/L (15-37); BLOOD UREA NITROGEN 9 MG/DL (7-18); CALCIUM LEVEL 7.6 MG/DL (8.5-10.1); CARBON DIOXIDE LEVEL 28 MEQ/L (21-32); CHLORIDE LEVEL 101 MEQ/L (98-107); CREATININE FOR GFR 0.56 MG/DL (0.55-1.02); GLOMERULAR FILTRATION RATE > 60.0 (>60); GLUCOSE, FASTING 207 MG/DL (70-105); POTASSIUM SERUM 3.1 MEQ/L (3.5-5.1); SODIUM LEVEL 140 MEQ/L (136-145)
[2016-11-26 07:19] LABS: ALBUMIN 2.9 GM/DL (3.2-5.2); ALBUMIN/GLOBULIN RATIO 0.83 (1.00-1.93); ALKALINE PHOSPHATASE 74 U/L (45-117); BILIRUBIN,TOTAL 0.4 MG/DL (0.2-1.0); MAGNESIUM LEVEL 1.5 MG/DL (1.8-2.4); TOTAL PROTEIN 6.4 GM/DL (6.4-8.2)
[2016-11-26 07:20] LABS: BASO % 0.3 % (0.0-1.0); EOS % 0.3 % (0.0-3.0); LARGE UNSTAINED CELL # 0.1 K/mm3 (0.0-0.4); LARGE UNSTAINED CELL % 1.1 % (0.0-4.0); LYMPH % 16.8 % (24.0-44.0); MEAN CORPUSCULAR HEMOGLOBIN 29.8 pg (27.0-33.0); MEAN CORPUSCULAR HGB CONC 33.5 g/dl (32.0-36.5); MEAN CORPUSCULAR VOLUME 89.1 fl (80.0-96.0); MONO # 0.7 K/mm3 (0.0-0.8); MONO % 5.8 % (0.0-5.0); NEUTROPHILS # 8.7 K/mm3 (1.8-7.7); NEUTROPHILS % 75.7 % (36.0-66.0); PLATELET COUNT, AUTOMATED 223 k/mm3 (150-450); RED CELL DISTRIBUTION WIDTH 12.1 % (11.5-14.5); WHITE BLOOD COUNT 11.4 K/mm3 (4.0-10.0)
[2016-11-26] MEDS: PANTOPRAZOLE 40MG INJ (PROTONIX) (C9113) IV SCH ×2 (07:48→21:22)
[2016-11-26] MEDS: HumaLOG INSULIN (NovoLOG) PER UNIT SC SCH ×4 (07:48→20:34)
[2016-11-26] MEDS: PROCHLORPERAZINE 5 MG TAB (S0183) PO PRN (10:40)
--- NOTE | 2016-11-26 14:38 | IPNPDOC ---
Subjective Date Seen The patient was seen on 11/26/16. Subjective Chief Complaint/HPI The patient is a 30-year-old female admitted with a reason for visit of Intractable Vomiting. Events since last encounter continues to be nauseous but no vomiting this am. continues to have abdominal pain . no fever or chills Objective Physical Examination General Exam: Positive: Alert, Cooperative Eye Exam: Positive: PERRLA, Conjunctiva & lids normal, EOMI, Negative: Sclera icteric, Ptosis ENT Exam: Positive: Atraumatic, Mucous membr. moist/pink, Pharynx Normal, Tongue Midline, Nares Patent, Negative: Pharyngeal Edema Neck Exam: Positive: Supple, +2 carotid pulse wo bruit, Negative: JVD, thyromegaly, Lymphadenopathy Chest Exam: Positive: Clear to auscultation, Normal air movement Heart Exam: Positive: Rate Normal, Tachycardic, Normal S1, Normal S2, Negative: Gallops, Murmurs, Rubs Telemetry: Positive: Tachycardia Abdomen Exam: Positive: Normal bowel sounds, Soft, Tenderness (to palpitation) , Negative: Hepatospenomegaly, Mass, Hernia Extremity Exam: Positive: Normal pulses, Negative: Clubbing, Cyanosis, Edema, Tenderness, Swelling Skin Exam: Positive: Other skin issue (excoriations on upper and lower extremities, brown-mahoney appearance to skin) Neuro Exam: Positive: Normal Speech, Strength at 5/5 X4 ext, Cranial Nerves 3- 12 NL Assessment /Plan Problems (1) Electrolyte disturbance Status: Acute Problem Text: hypokalemia, hyomagnesemia, hypocalcemia being replaced. (2) Orthostatic hypotension Status: Acute Problem Text: due to poor intake and persistent loss will continue with ivf. (3) Diabetic gastroparesis Status: Chronic Problem Text: had gastric emptying study in may 2016 at [facility] was positive now having an acute attack may also have underlying chronic pancreatitis. still not tolerating po (4) Intractable vomiting Status: Acute Problem Text: due gastroparesis continue with zofran and compazine will also start metoclopramide. continue IVF. continue PPI still not tolerating po (5) Diabetes Status: Chronic Problem Text: type 1 diabetes diagnosed in 2016 patient hypoglycemic this am will hold long acting insulin for now, will continue lispro sliding scale. Still not able to eat solid food. (6) OCD (obsessive compulsive disorder) Status: Chronic Problem Text: also has anxiety and depression will continue with home medications. (7) Protein-calorie malnutrition Status: Chronic (8) Asthma Status: Chronic (9) Chronic pancreatitis Status: Chronic Problem Text: has pancreatic calcifications in CT abdomen. will give IV morphine prn. 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 Plan/VTE VTE Prophylaxis Ordered?: Yes (TEDs, sequentials, knee high compression, heparin 5,000 units SC every 8 hours) Plan IVF: Initiate (NS @ 75 mLs/hr) Diet: Make NPO Activity: Continue Current (OOB ad pamela to chair with assistance) Diagnostics: Check Labs, Repeat Labs in AM, Nuclear Med Study Anticipated Discharge: Home VS, I&O, 24H, [facility] Vital Signs/I&O Vital Signs Date Time Temp Pulse Resp B/P (MAP) Pulse Ox O2 Delivery O2 Flow Rate FiO2 11/26/16 06:00 99.7 93 16 150/91 (110) 95 Room Air I&O- Last 24 Hours up to 6 AM 11/26/16 06:00 Intake Total 1230 ml Output Total 50 ml Balance 1180 ml Laboratory Data 24H LABS Laboratory Tests 2 11/25/16 16:57: Bedside Glucose (Misc Panel) 124H 11/25/16 20:32: Bedside Glucose (Misc Panel) 137H 11/25/16 21:00: Calcium Level 7.3L, Whole Blood Ionized Calcium 3.9L, Magnesium Level 1.0L, Albumin 3.0L, Lipase 55L 11/26/16 06:43: Calcium Level 7.6L, Magnesium Level 1.5L, Albumin 2.9L, White Blood Count 11.4H , Red Blood Count 3.87L, Hemoglobin 11.5L, Hematocrit 34.5L, Mean Corpuscular Volume 89.1, Mean Corpuscular Hemoglobin 29.8, Mean Corpuscular Hemoglobin Concent 33.5, Red Cell Distribution Width 12.1, Platelet Count 223, Neutrophils (%) (Auto) 75.7H, Lymphocytes (%) (Auto) 16.8L, Monocytes (%) (Auto) 5.8H, Eosinophils (%) (Auto) 0.3, Basophils (%) (Auto) 0.3, Neutrophils # (Auto) 8.7H , Lymphocytes # (Auto) 2.0, Monocytes # (Auto) 0.7, Eosinophils # (Auto) 0.0, Basophils # (Auto) 0.0, Large Unclassified Cells % 1.1, Large Unclassified Cells # 0.1, Anion Gap 11, Glomerular Filtration Rate > 60.0, Blood Urea Nitrogen 9, Creatinine 0.56, Sodium Level 140, Potassium Level 3.1L, Chloride Level 101, Carbon Dioxide Level 28, Aspartate Amino Transf (AST/SGOT) 12L, Alanine Aminotransferase (ALT/SGPT) 16, Alkaline Phosphatase 74, Total Bilirubin 0.4, Total Protein 6.4, Albumin/Globulin Ratio 0.83L 11/26/16 11:56: Bedside Glucose (Misc Panel) 129H CBC/BMP Laboratory Tests 11/26/16 06:43 Red Blood Count 3.87 L, Mean Corpuscular Volume 89.1, Mean Corpuscular Hemoglobin 29.8, Mean Corpuscular Hemoglobin Concent 33.5, Red Cell Distribution Width 12.1, Neutrophils (%) (Auto) 75.7 H, Lymphocytes (%) (Auto) 16.8 L, Monocytes (%) (Auto) 5.8 H, Eosinophils (%) (Auto) 0.3, Basophils (%) ( Auto) 0.3, Neutrophils # (Auto) 8.7 H, Lymphocytes # (Auto) 2.0, Monocytes # ( Auto) 0.7, Eosinophils # (Auto) 0.0, Basophils # (Auto) 0.0, Calcium Level 7.6 L , Aspartate Amino Transf (AST/SGOT) 12 L, Alanine Aminotransferase (ALT/SGPT) 16 , Alkaline Phosphatase 74, Total Bilirubin 0.4, Total Protein 6.4, Albumin 2.9 L Microbiology Microbiology 11/23/16 Blood Culture - Preliminary, Resulted No Growth after 48 hours. All Specime... 11/23/16 Blood Culture - Preliminary, Resulted No Growth after 48 hours. All Specime... 11/23/16 Urine Culture - Final, Complete WILLIAM AVELAR MD Nov 26, 2016 14:38
[2016-11-26 15:08] VITALS: BP 104/61
[2016-11-26 17:40] LABS: ANION GAP 7 MEQ/L (8-16); BLOOD UREA NITROGEN 6 MG/DL (7-18); CALCIUM LEVEL 7.9 MG/DL (8.5-10.1); CARBON DIOXIDE LEVEL 34 MEQ/L (21-32); CHLORIDE LEVEL 101 MEQ/L (98-107); CREATININE FOR GFR 0.62 MG/DL (0.55-1.02); GLOMERULAR FILTRATION RATE > 60.0 (>60); GLUCOSE, FASTING 119 MG/DL (70-105); MAGNESIUM LEVEL 1.5 MG/DL (1.8-2.4); POTASSIUM SERUM 3.2 MEQ/L (3.5-5.1); SODIUM LEVEL 142 MEQ/L (136-145)
[2016-11-26] MEDS: ONDANSETRON 4MG/2ML VIAL (J2405) IV PRN (19:46)
[2016-11-26] MEDS: KCL 40MEQ IN D5/NS 1000ML 1,000 ML IV SCH (19:46)
[2016-11-26 20:00] VITALS: BP 152/88
[2016-11-26] MEDS: fluvoxaMINE MALEATE 50 MG TAB PO SCH (21:00)
[2016-11-26] MEDS: QUEtiapine FUMARATE 50 MG TAB PO SCH (21:00)
[2016-11-26 23:17] VITALS: BP 149/90
[2016-11-27] VITALS (8 sets, daily range): BP systolic 79–168; BP diastolic 50–95
[2016-11-27] MEDS: MAG SULF 1GM/100ML (MAG RUN) 1 GM in APPROPRIATE DILUENT 1 EA IV SCH ×3 (00:22→04:19)
[2016-11-27] MEDS: ONDANSETRON 4MG/2ML VIAL (J2405) IV PRN ×2 (03:38→17:35)
[2016-11-27 04:50] LABS: BASO % 0.5 % (0.0-1.0); EOS # 0.1 K/mm3 (0.0-0.50); EOS % 1.3 % (0.0-3.0); LARGE UNSTAINED CELL # 0.2 K/mm3 (0.0-0.4); LARGE UNSTAINED CELL % 1.8 % (0.0-4.0); LYMPH # 2.4 K/mm3 (1.5-4.5); LYMPH % 24.2 % (24.0-44.0); MEAN CORPUSCULAR HEMOGLOBIN 29.9 pg (27.0-33.0); MEAN CORPUSCULAR HGB CONC 34.1 g/dl (32.0-36.5); MEAN CORPUSCULAR VOLUME 87.7 fl (80.0-96.0); MONO # 0.6 K/mm3 (0.0-0.8); MONO % 6.2 % (0.0-5.0); NEUTROPHILS # 6.2 K/mm3 (1.8-7.7); NEUTROPHILS % 66.1 % (36.0-66.0); PLATELET COUNT, AUTOMATED 230 k/mm3 (150-450); RED CELL DISTRIBUTION WIDTH 12.1 % (11.5-14.5); WHITE BLOOD COUNT 9.4 K/mm3 (4.0-10.0)
[2016-11-27] MEDS: HEPARIN SOD (PORCINE) 5000 UNITS/ML VIAL SC SCH ×3 (05:14→22:00)
[2016-11-27] MEDS: METOCLOPRAMIDE INJ 10MG/2ML VIAL (J2765) IV SCH ×3 (05:14→22:22)
[2016-11-27 05:15] LABS: ALBUMIN 2.9 GM/DL (3.2-5.2); ALBUMIN/GLOBULIN RATIO 0.83 (1.00-1.93); ALKALINE PHOSPHATASE 74 U/L (45-117); ALT/SGPT 16 U/L (12-78); ANION GAP 9 MEQ/L (8-16); AST/SGOT 13 U/L (15-37); BILIRUBIN,TOTAL 0.5 MG/DL (0.2-1.0); BLOOD UREA NITROGEN 7 MG/DL (7-18); CALCIUM LEVEL 8.2 MG/DL (8.5-10.1); CARBON DIOXIDE LEVEL 31 MEQ/L (21-32); CHLORIDE LEVEL 100 MEQ/L (98-107); CREATININE FOR GFR 0.55 MG/DL (0.55-1.02); GLOMERULAR FILTRATION RATE > 60.0 (>60); GLUCOSE, FASTING 202 MG/DL (70-105); SODIUM LEVEL 140 MEQ/L (136-145); TOTAL PROTEIN 6.4 GM/DL (6.4-8.2)
[2016-11-27] MEDS: KCL 10MEQ IN 100ML SWI (KRUN) 10 MEQ in APPROPRIATE DILUENT 1 EA IV SCH ×8 (06:23→10:21)
[2016-11-27] MEDS: KCL 40MEQ IN D5/NS 1000ML 1,000 ML IV SCH ×2 (07:00→15:27)
[2016-11-27 07:28] LABS: MAGNESIUM LEVEL 1.8 MG/DL (1.8-2.4)
[2016-11-27] MEDS: HumaLOG INSULIN (NovoLOG) PER UNIT SC SCH ×4 (07:30→20:09)
--- NOTE | 2016-11-27 09:52 | IPNPDOC ---
Subjective Date Seen The patient was seen on 11/27/16. Subjective Chief Complaint/HPI The patient is a 30-year-old female admitted with a reason for visit of Intractable Vomiting. Events since last encounter abdominal pain slowly getting better, no further vomiting however still not eating any solid food . however able to keep liquids down. Has persistent orthostatic hypotension with persistent dizziness and light headedness. Objective Physical Examination General Exam: Positive: Alert, Cooperative Eye Exam: Positive: PERRLA, Conjunctiva & lids normal, EOMI, Negative: Sclera icteric, Ptosis ENT Exam: Positive: Atraumatic, Mucous membr. moist/pink, Pharynx Normal, Tongue Midline, Nares Patent, Negative: Pharyngeal Edema Neck Exam: Positive: Supple, +2 carotid pulse wo bruit, Negative: JVD, thyromegaly, Lymphadenopathy Chest Exam: Positive: Clear to auscultation, Normal air movement Heart Exam: Positive: Rate Normal, Tachycardic, Normal S1, Normal S2, Negative: Gallops, Murmurs, Rubs Telemetry: Positive: Tachycardia Abdomen Exam: Positive: Normal bowel sounds, Soft, Tenderness (to palpitation) , Negative: Hepatospenomegaly, Mass, Hernia Extremity Exam: Positive: Normal pulses, Negative: Clubbing, Cyanosis, Edema, Tenderness, Swelling Skin Exam: Positive: Other skin issue (excoriations on upper and lower extremities, brown-mahoney appearance to skin) Neuro Exam: Positive: Normal Speech, Strength at 5/5 X4 ext, Cranial Nerves 3- 12 NL Assessment /Plan Problems (1) Electrolyte disturbance Status: Acute Problem Text: hypokalemia, hyomagnesemia, hypocalcemia being replaced. (2) Orthostatic hypotension Status: Acute Problem Text: due to poor intake and persistent loss will continue with ivf. also on fludrocortisone. follows with Dr Rafi peterson at [facility] (3) Diabetic gastroparesis Status: Chronic Problem Text: had gastric emptying study in may 2016 at [facility] was positive now having an acute attack may also have underlying chronic pancreatitis. still not tolerating po (4) Intractable vomiting Status: Acute Response to Treatment: Improving Problem Text: due gastroparesis continue with zofran and compazine will also start metoclopramide. continue IVF. continue PPI still not tolerating po (5) Diabetes Status: Chronic Problem Text: type 1 diabetes diagnosed in 2016 patient hypoglycemic this am will hold long acting insulin for now, will continue lispro sliding scale. Still not able to eat solid food. (6) OCD (obsessive compulsive disorder) Status: Chronic Problem Text: also has anxiety and depression will continue with home medications. (7) Protein-calorie malnutrition Status: Chronic (8) Asthma Status: Chronic (9) Chronic pancreatitis Status: Chronic Problem Text: has pancreatic calcifications in CT abdomen. will give IV morphine prn. 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 fsh and lh levels did not suggest any hypogonadism. does not have hypothyroidism. Plan/VTE VTE Prophylaxis Ordered?: Yes (TEDs, sequentials, knee high compression, heparin 5,000 units SC every 8 hours) Plan IVF: Initiate (NS @ 75 mLs/hr) Diet: Make NPO Activity: Continue Current (OOB ad pamela to chair with assistance) Diagnostics: Check Labs, Repeat Labs in AM, Nuclear Med Study Anticipated Discharge: Home VS, I&O, 24H, [facility] Vital Signs/I&O Vital Signs Date Time Temp Pulse Resp B/P (MAP) Pulse Ox O2 Delivery O2 Flow Rate FiO2 11/27/16 08:01 109 95 11/27/16 08:00 97.3 16 121/75 (90) Room Air I&O- Last 24 Hours up to 6 AM 11/27/16 06:00 Intake Total 2490 ml Output Total 0 ml Balance 2490 ml Laboratory Data 24H LABS Laboratory Tests 2 11/26/16 11:56: Bedside Glucose (Misc Panel) 129H 11/26/16 17:00: Bedside Glucose (Misc Panel) 112H 11/26/16 17:01: Anion Gap 7L, Glomerular Filtration Rate > 60.0, Blood Urea Nitrogen 6L, Creatinine 0.62, Sodium Level 142, Potassium Level 3.2L, Chloride Level 101, Carbon Dioxide Level 34H, Calcium Level 7.9L, Magnesium Level 1.5L 11/26/16 20:18: Bedside Glucose (Misc Panel) 154H 11/27/16 01:05: Bedside Glucose (Misc Panel) 172H 11/27/16 04:34: White Blood Count 9.4, Red Blood Count 4.01, Hemoglobin 12.0, Hematocrit 35.2L, Mean Corpuscular Volume 87.7, Mean Corpuscular Hemoglobin 29.9, Mean Corpuscular Hemoglobin Concent 34.1, Red Cell Distribution Width 12.1, Platelet Count 230, Neutrophils (%) (Auto) 66.1H, Lymphocytes (%) (Auto) 24.2, Monocytes (%) (Auto) 6.2H, Eosinophils (%) (Auto) 1.3, Basophils (%) (Auto) 0.5, Neutrophils # (Auto) 6.2, Lymphocytes # (Auto) 2.4, Monocytes # (Auto) 0.6, Eosinophils # (Auto) 0.1, Basophils # (Auto) 0.0, Large Unclassified Cells % 1.8 , Large Unclassified Cells # 0.2, Anion Gap 9, Glomerular Filtration Rate > 60.0 , Blood Urea Nitrogen 7, Creatinine 0.55, Sodium Level 140, Potassium Level 3.0L , Chloride Level 100, Carbon Dioxide Level 31, Calcium Level 8.2L, Aspartate Amino Transf (AST/SGOT) 13L, Alanine Aminotransferase (ALT/SGPT) 16, Alkaline Phosphatase 74, Total Bilirubin 0.5, Total Protein 6.4, Albumin 2.9L, Magnesium Level 1.8, Albumin/Globulin Ratio 0.83L CBC/BMP Laboratory Tests 11/26/16 17:01 Calcium Level 7.9 L 11/27/16 04:34 Calcium Level 8.2 L, Red Blood Count 4.01, Mean Corpuscular Volume 87.7, Mean Corpuscular Hemoglobin 29.9, Mean Corpuscular Hemoglobin Concent 34.1, Red Cell Distribution Width 12.1, Neutrophils (%) (Auto) 66.1 H, Lymphocytes (%) (Auto) 24.2, Monocytes (%) (Auto) 6.2 H, Eosinophils (%) (Auto) 1.3, Basophils (%) ( Auto) 0.5, Neutrophils # (Auto) 6.2, Lymphocytes # (Auto) 2.4, Monocytes # (Auto ) 0.6, Eosinophils # (Auto) 0.1, Basophils # (Auto) 0.0, Aspartate Amino Transf (AST/SGOT) 13 L, Alanine Aminotransferase (ALT/SGPT) 16, Alkaline Phosphatase 74 , Total Bilirubin 0.5, Total Protein 6.4, Albumin 2.9 L Microbiology Microbiology 11/23/16 Blood Culture - Preliminary, Resulted No Growth after 72 hours. All specime... 11/23/16 Blood Culture - Preliminary, Resulted No Growth after 72 hours. All specime... 11/23/16 Urine Culture - Final, Complete WILLIAM AVELAR MD Nov 27, 2016 09:52
[2016-11-27] MEDS ORDERED: KCL 10MEQ IN 100ML SWI (KRUN) 10 MEQ in APPROPRIATE DILUENT 1 EA IV SCH ×2 (10:00)
[2016-11-27] MEDS: PANTOPRAZOLE 40MG INJ (PROTONIX) (C9113) IV SCH ×2 (10:22→22:23)
[2016-11-27] MEDS: FLUDROCORTISONE ACETATE 0.1 MG TAB PO SCH (13:30)
[2016-11-27] MEDS: POTASSIUM CHLORIDE 10 MEQ SR TABLET PO SCH ×3 (15:09→21:00)
[2016-11-27] MEDS: QUEtiapine FUMARATE 50 MG TAB PO SCH (21:00)
[2016-11-27] MEDS: fluvoxaMINE MALEATE 50 MG TAB PO SCH (21:00)
[2016-11-28] MEDS: ONDANSETRON 4MG/2ML VIAL (J2405) IV PRN (00:38)
[2016-11-28 02:00] VITALS: BP 140/78
[2016-11-28 06:00] VITALS: BP 134/84
[2016-11-28] MEDS: HEPARIN SOD (PORCINE) 5000 UNITS/ML VIAL SC SCH ×3 (06:00→21:52)
[2016-11-28] MEDS: METOCLOPRAMIDE INJ 10MG/2ML VIAL (J2765) IV SCH ×4 (06:06→22:00)
[2016-11-28 06:12] LABS: BASO % 0.5 % (0.0-1.0); EOS # 0.4 K/mm3 (0.0-0.50); EOS % 3.9 % (0.0-3.0); LARGE UNSTAINED CELL # 0.2 K/mm3 (0.0-0.4); LARGE UNSTAINED CELL % 2.1 % (0.0-4.0); LYMPH # 2.6 K/mm3 (1.5-4.5); LYMPH % 27.5 % (24.0-44.0); MEAN CORPUSCULAR HEMOGLOBIN 30.3 pg (27.0-33.0); MEAN CORPUSCULAR HGB CONC 35.3 g/dl (32.0-36.5); MEAN CORPUSCULAR VOLUME 85.7 fl (80.0-96.0); MONO # 0.5 K/mm3 (0.0-0.8); MONO % 5.6 % (0.0-5.0); NEUTROPHILS # 5.7 K/mm3 (1.8-7.7); NEUTROPHILS % 60.6 % (36.0-66.0); PLATELET COUNT, AUTOMATED 247 k/mm3 (150-450); RED CELL DISTRIBUTION WIDTH 11.8 % (11.5-14.5); WHITE BLOOD COUNT 9.4 K/mm3 (4.0-10.0)
[2016-11-28 06:22] LABS: ALBUMIN 3.1 GM/DL (3.2-5.2); ALBUMIN/GLOBULIN RATIO 0.97 (1.00-1.93); ALKALINE PHOSPHATASE 76 U/L (45-117); ALT/SGPT 18 U/L (12-78); ANION GAP 9 MEQ/L (8-16); AST/SGOT 11 U/L (15-37); BILIRUBIN,TOTAL 0.6 MG/DL (0.2-1.0); BLOOD UREA NITROGEN 7 MG/DL (7-18); CALCIUM LEVEL 7.7 MG/DL (8.5-10.1); CARBON DIOXIDE LEVEL 32 MEQ/L (21-32); CHLORIDE LEVEL 100 MEQ/L (98-107); CREATININE FOR GFR 0.59 MG/DL (0.55-1.02); GLOMERULAR FILTRATION RATE > 60.0 (>60); GLUCOSE, FASTING 178 MG/DL (70-105); POTASSIUM SERUM 3.3 MEQ/L (3.5-5.1); SODIUM LEVEL 141 MEQ/L (136-145); TOTAL PROTEIN 6.3 GM/DL (6.4-8.2)
[2016-11-28] MEDS: HumaLOG INSULIN (NovoLOG) PER UNIT SC SCH ×4 (07:30→21:00)
--- NOTE | 2016-11-28 08:17 | REP ---
Clinical: Uncontrollable vomiting. History of acromegaly. Comparison: 04/14/2016. Technique: Precontrast axial FLAIR and T2 sequences as well as coronal and sagittal T1 and diffusion/ADC sequences followed by axial, coronal, sagittal postcontrast T1 sequences as well as multiple delayed coronal sequences through the pituitary gland. Findings: Images through the brain demonstrate normal gutierres-white differentiation, ventricles, sulci and cisterns and no evidence for mass or mass effect. No extra-axial collection. Midline and midbrain structures appear symmetric and intact. There is no evidence for intracranial hemorrhage, infarction or extra-axial collection. The calvarium is intact. The globes and intraconal contents are symmetric and normal. The visualized sinuses are clear. The pituitary gland is normal in size and signal intensity and demonstrates normal homogeneous enhancement throughout postcontrast imaging. The pituitary gland measures approximately 7 mm in height and the infundibulum is noted midline. The surrounding sella and parasellar structures appear normal. Impression: Normal pre and postcontrast examination. Normal appearance to the pituitary gland and surrounding structures. Signed by Esteban Connolly MD 11/28/2016 08:08 A
--- NOTE | 2016-11-28 08:59 | ECGEPIP ---
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
[2016-11-28] MEDS: FLUDROCORTISONE ACETATE 0.1 MG TAB PO SCH (09:00)
[2016-11-28] MEDS: POTASSIUM CHLORIDE 10 MEQ SR TABLET PO SCH ×2 (09:00→21:00)
[2016-11-28] MEDS: PANTOPRAZOLE 40MG INJ (PROTONIX) (C9113) IV SCH ×3 (09:00→21:51)
[2016-11-28 10:00] VITALS: BP 144/94
--- NOTE | 2016-11-28 10:25 | IPNPDOC ---
Subjective Date Seen The patient was seen on 11/28/16. Subjective Chief Complaint/HPI The patient is a 30-year-old female admitted with a reason for visit of Intractable Vomiting. Events since last encounter continues to have nausea , dizziness has improved, still on liquids has not been able to tolerate solid food. Objective Physical Examination General Exam: Positive: Alert, Cooperative Eye Exam: Positive: PERRLA, Conjunctiva & lids normal, EOMI, Negative: Sclera icteric, Ptosis ENT Exam: Positive: Atraumatic, Mucous membr. moist/pink, Pharynx Normal, Tongue Midline, Nares Patent, Negative: Pharyngeal Edema Neck Exam: Positive: Supple, +2 carotid pulse wo bruit, Negative: JVD, thyromegaly, Lymphadenopathy Chest Exam: Positive: Clear to auscultation, Normal air movement Heart Exam: Positive: Rate Normal, Tachycardic, Normal S1, Normal S2, Negative: Gallops, Murmurs, Rubs Telemetry: Positive: Tachycardia Abdomen Exam: Positive: Normal bowel sounds, Soft, Tenderness (to palpitation) , Negative: Hepatospenomegaly, Mass, Hernia Extremity Exam: Positive: Normal pulses, Negative: Clubbing, Cyanosis, Edema, Tenderness, Swelling Skin Exam: Positive: Other skin issue (excoriations on upper and lower extremities, brown-mahoney appearance to skin) Neuro Exam: Positive: Normal Speech, Strength at 5/5 X4 ext, Cranial Nerves 3- 12 NL Assessment /Plan Problems (1) Electrolyte disturbance Status: Acute Problem Text: hypokalemia, hyomagnesemia, hypocalcemia being replaced. (2) Orthostatic hypotension Status: Acute Problem Text: due to poor intake and persistent loss will continue with ivf. also on fludrocortisone. follows with Dr Rafi peterson at [facility] (3) Diabetic gastroparesis Status: Chronic Problem Text: had gastric emptying study in may 2016 at [facility] was positive now having an acute attack may also have underlying chronic pancreatitis. still not tolerating po (4) Intractable vomiting Status: Acute Response to Treatment: Improving Problem Text: due gastroparesis continue with zofran and compazine will also start metoclopramide. continue IVF. continue PPI still not tolerating po (5) Diabetes Status: Chronic Problem Text: type 1 diabetes diagnosed in 2016 patient hypoglycemic this am will hold long acting insulin for now, will continue lispro sliding scale. Still not able to eat solid food. (6) OCD (obsessive compulsive disorder) Status: Chronic Problem Text: also has anxiety and depression will continue with home medications. (7) Protein-calorie malnutrition Status: Chronic (8) Asthma Status: Chronic (9) Chronic pancreatitis Status: Chronic Problem Text: has pancreatic calcifications in CT abdomen. will give IV morphine prn. 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 Has cosyntropin test before and acth levels which did not show any adrenal insufficiency will check pth level. fsh and lh levels did not suggest any hypogonadism. does not have hypothyroidism. Plan/VTE VTE Prophylaxis Ordered?: Yes (TEDs, sequentials, knee high compression, heparin 5,000 units SC every 8 hours) Plan IVF: Initiate (NS @ 75 mLs/hr) Diet: Make NPO Activity: Continue Current (OOB ad pamela to chair with assistance) Diagnostics: Check Labs, Repeat Labs in AM, Nuclear Med Study Anticipated Discharge: Home VS, I&O, 24H, [facility] Vital Signs/I&O Vital Signs Date Time Temp Pulse Resp B/P (MAP) Pulse Ox O2 Delivery O2 Flow Rate FiO2 11/28/16 06:00 98.9 96 18 134/84 (101) 97 Room Air I&O- Last 24 Hours up to 6 AM 11/28/16 06:00 Intake Total 2764 ml Balance 2764 ml Laboratory Data 24H LABS Laboratory Tests 2 11/27/16 13:10: Bedside Glucose (Misc Panel) 159H 11/27/16 13:20: Urine Appearance HAZY, Urine Color YELLOW, Urine pH 7.0, Urine Specific [place] 1.006, Urine Protein NEGATIVE, Urine Glucose (UA) 1+H, Urine Ketones 1+H, Urine Urobilinogen 0.2, Urine Bilirubin NEGATIVE, Urine Leukocyte Esterase 3+H, Urine Blood NEGATIVE, Urine Nitrite NEGATIVE, Urine WBC (Auto) 50H, Urine RBC (Auto) 3 , Urine Hyaline Casts (Auto) 0, Urine Bacteria (Auto) NEGATIVE, Urine Squamous Epithelial Cells 1, Urine Mucus (Auto) SMALL, Urine Sperm (Auto) 11/27/16 16:33: Bedside Glucose (Misc Panel) 170H 11/27/16 20:07: Bedside Glucose (Misc Panel) 169H 11/28/16 05:34: White Blood Count 9.4, Red Blood Count 4.12, Hemoglobin 12.5, Hematocrit 35.3L, Mean Corpuscular Volume 85.7, Mean Corpuscular Hemoglobin 30.3, Mean Corpuscular Hemoglobin Concent 35.3, Red Cell Distribution Width 11.8, Platelet Count 247, Neutrophils (%) (Auto) 60.6, Lymphocytes (%) (Auto) 27.5, Monocytes ( %) (Auto) 5.6H, Eosinophils (%) (Auto) 3.9H, Basophils (%) (Auto) 0.5, Neutrophils # (Auto) 5.7, Lymphocytes # (Auto) 2.6, Monocytes # (Auto) 0.5, Eosinophils # (Auto) 0.4, Basophils # (Auto) 0.0, Large Unclassified Cells % 2.1 , Large Unclassified Cells # 0.2, Anion Gap 9, Glomerular Filtration Rate > 60.0 , Blood Urea Nitrogen 7, Creatinine 0.59, Sodium Level 141, Potassium Level 3.3L , Chloride Level 100, Carbon Dioxide Level 32, Calcium Level 7.7L, Aspartate Amino Transf (AST/SGOT) 11L, Alanine Aminotransferase (ALT/SGPT) 18, Alkaline Phosphatase 76, Total Bilirubin 0.6, Total Protein 6.3L, Albumin 3.1L, Albumin/ Globulin Ratio 0.97L CBC/BMP Laboratory Tests 11/28/16 05:34 Red Blood Count 4.12, Mean Corpuscular Volume 85.7, Mean Corpuscular Hemoglobin 30.3, Mean Corpuscular Hemoglobin Concent 35.3, Red Cell Distribution Width 11.8 , Neutrophils (%) (Auto) 60.6, Lymphocytes (%) (Auto) 27.5, Monocytes (%) (Auto ) 5.6 H, Eosinophils (%) (Auto) 3.9 H, Basophils (%) (Auto) 0.5, Neutrophils # ( Auto) 5.7, Lymphocytes # (Auto) 2.6, Monocytes # (Auto) 0.5, Eosinophils # (Auto ) 0.4, Basophils # (Auto) 0.0, Calcium Level 7.7 L, Aspartate Amino Transf (AST/ SGOT) 11 L, Alanine Aminotransferase (ALT/SGPT) 18, Alkaline Phosphatase 76, Total Bilirubin 0.6, Total Protein 6.3 L, Albumin 3.1 L Microbiology Microbiology 11/23/16 Blood Culture - Preliminary, Resulted No Growth after 72 hours. All specime... 11/23/16 Blood Culture - Preliminary, Resulted No Growth after 72 hours. All specime... 11/23/16 Urine Culture - Final, Complete WILLIAM AVELAR MD Nov 28, 2016 10:25
--- NOTE | 2016-11-28 12:25 | ECHO ---
DATE OF SERVICE: 11/27/2016 REFERRING PROVIDER: Dr. Angelito Bower REASON FOR ECHOCARDIOGRAM: Orthostatic hypotension. 2D MEASUREMENTS: IVS: 0.9 cm LV: 4.8 cm LVPW: 0.9 cm LA: 3.7 cm Aorta: 3.1 cm IVC: 1.3 cm DOPPLER MEASUREMENTS: Mitral E: 0.67 Mitral A: 0.61 with a ratio of 1.1 2D COMMENTS: 1. Normal left ventricular size, wall thickness and normal global left ventricular systolic function. The estimated left ventricular systolic ejection fraction is 60-65%. 2. Normal left atrium. Normal right atrium and the left ventricle. 3. The atrial septum appeared to be normal without evidence of defect or shunt. 4. Normal aortic root. 5. No pericardial effusions seen. 6. The aortic valve, mitral valve, tricuspid valve, and pulmonic valve appear to be normal. The proximal pulmonary artery branches were not well visualized. 7. The inferior vena cava was normal in size, central venous pressure is most likely normal. DOPPLER: No significant valvular abnormalities detected. Assessment of the left ventricular diastolic function was normal. IMPRESSION: 1. Normal global left ventricular systolic and diastolic function. 2. No significant valvular abnormality. 3. Central venous pressure appeared to be normal. 4. This was compared with the last echocardiogram on 11/28/2015, no remarkable changes. MTDD
[2016-11-28 14:00] VITALS: BP 146/93
[2016-11-28] MEDS: KCL 40MEQ IN D5/NS 1000ML 1,000 ML IV SCH (14:52)
[2016-11-28 18:00] VITALS: BP 144/80
[2016-11-28 19:57] VITALS: BP_SYST 122; BP_SYST 163; BP_SYST 62; BP_DIAS 101; BP_DIAS 29; BP_DIAS 70
[2016-11-28] MEDS: QUEtiapine FUMARATE 50 MG TAB PO SCH (21:00)
[2016-11-28] MEDS: fluvoxaMINE MALEATE 50 MG TAB PO SCH (21:00)
[2016-11-29] MEDS: KCL 40MEQ IN D5/NS 1000ML 1,000 ML IV SCH (02:17)
[2016-11-29] MEDS: HEPARIN SOD (PORCINE) 5000 UNITS/ML VIAL SC SCH ×3 (06:00→20:47)
[2016-11-29 06:10] VITALS: BP_SYST 134; BP_SYST 71; BP_SYST 98; BP_DIAS 41; BP_DIAS 60; BP_DIAS 92
[2016-11-29] MEDS: METOCLOPRAMIDE INJ 10MG/2ML VIAL (J2765) IV SCH ×3 (06:14→20:46)
[2016-11-29 06:53] LABS: BASO # 0.1 K/mm3 (0.0-0.2); BASO % 0.6 % (0.0-1.0); EOS # 0.8 K/mm3 (0.0-0.50); EOS % 7.7 % (0.0-3.0); LARGE UNSTAINED CELL # 0.2 K/mm3 (0.0-0.4); LARGE UNSTAINED CELL % 1.7 % (0.0-4.0); LYMPH # 4.1 K/mm3 (1.5-4.5); LYMPH % 37.3 % (24.0-44.0); MEAN CORPUSCULAR HEMOGLOBIN 30.1 pg (27.0-33.0); MEAN CORPUSCULAR HGB CONC 34.3 g/dl (32.0-36.5); MEAN CORPUSCULAR VOLUME 87.7 fl (80.0-96.0); MONO # 0.5 K/mm3 (0.0-0.8); NEUTROPHILS % 47.8 % (36.0-66.0); PLATELET COUNT, AUTOMATED 240 k/mm3 (150-450); RED CELL DISTRIBUTION WIDTH 12.3 % (11.5-14.5); WHITE BLOOD COUNT 10.5 K/mm3 (4.0-10.0)
[2016-11-29 07:08] LABS: ALBUMIN 2.9 GM/DL (3.2-5.2); ALBUMIN/GLOBULIN RATIO 0.88 (1.00-1.93); ALKALINE PHOSPHATASE 73 U/L (45-117); ALT/SGPT 17 U/L (12-78); ANION GAP 8 MEQ/L (8-16); AST/SGOT 11 U/L (15-37); BILIRUBIN,TOTAL 0.6 MG/DL (0.2-1.0); BLOOD UREA NITROGEN 6 MG/DL (7-18); CALCIUM LEVEL 7.4 MG/DL (8.5-10.1); CARBON DIOXIDE LEVEL 30 MEQ/L (21-32); CHLORIDE LEVEL 103 MEQ/L (98-107); CREATININE FOR GFR 0.54 MG/DL (0.55-1.02); GLOMERULAR FILTRATION RATE > 60.0 (>60); GLUCOSE, FASTING 160 MG/DL (70-105); POTASSIUM SERUM 3.4 MEQ/L (3.5-5.1); SODIUM LEVEL 141 MEQ/L (136-145); TOTAL PROTEIN 6.2 GM/DL (6.4-8.2)
[2016-11-29] MEDS: HumaLOG INSULIN (NovoLOG) PER UNIT SC SCH ×4 (07:55→21:00)
[2016-11-29 08:00] VITALS: BP_SYST 124; BP_SYST 168; BP_SYST 79; BP_DIAS 102; BP_DIAS 49; BP_DIAS 71
[2016-11-29] MEDS: POTASSIUM CHLORIDE 10 MEQ SR TABLET PO SCH ×3 (09:00→20:47)
[2016-11-29] MEDS: FLUDROCORTISONE ACETATE 0.1 MG TAB PO SCH (09:52)
[2016-11-29] MEDS: PANTOPRAZOLE 40MG INJ (PROTONIX) (C9113) IV SCH ×2 (09:53→20:45)
--- NOTE | 2016-11-29 10:25 | IPNPDOC ---
Subjective Date Seen The patient was seen on 11/29/16. Subjective Chief Complaint/HPI The patient is a 30-year-old female admitted with a reason for visit of Intractable Vomiting. Events since last encounter continues to have dizziness and light headedness on walking, orthostatic bps still positive. now able to tolerate oral liquids and some crackers, took some solid food yesterday but threw up after about 2 hours. could not do xray upper gi with follow through as could not drink the barium due to severe nausea. Objective Physical Examination General Exam: Positive: Alert, Cooperative Eye Exam: Positive: PERRLA, Conjunctiva & lids normal, EOMI, Negative: Sclera icteric, Ptosis ENT Exam: Positive: Atraumatic, Mucous membr. moist/pink, Pharynx Normal, Tongue Midline, Nares Patent, Negative: Pharyngeal Edema Neck Exam: Positive: Supple, +2 carotid pulse wo bruit, Negative: JVD, thyromegaly, Lymphadenopathy Chest Exam: Positive: Clear to auscultation, Normal air movement Heart Exam: Positive: Rate Normal, Tachycardic, Normal S1, Normal S2, Negative: Gallops, Murmurs, Rubs Telemetry: Positive: Tachycardia Abdomen Exam: Positive: Normal bowel sounds, Soft, Tenderness (to palpitation) , Negative: Hepatospenomegaly, Mass, Hernia Extremity Exam: Positive: Normal pulses, Negative: Clubbing, Cyanosis, Edema, Tenderness, Swelling Skin Exam: Positive: Other skin issue (excoriations on upper and lower extremities, brown-mahoney appearance to skin) Neuro Exam: Positive: Normal Speech, Strength at 5/5 X4 ext, Cranial Nerves 3- 12 NL Assessment /Plan Problems (1) Diabetic gastroparesis Status: Chronic Problem Text: had gastric emptying study in may 2016 at [facility] was positive for delayed emptying here we could not do as patient is allergic to egg. she had it with oatmeal at the other hospital now having an acute attack may also have underlying chronic pancreatitis as CT shows calcifications in the pancreas. still not tolerating po will ask for GI consult. (2) Electrolyte disturbance Status: Acute Response to Treatment: Improving Problem Text: hypokalemia, hyomagnesemia, hypocalcemia being replaced. (3) Orthostatic hypotension Status: Acute Problem Text: due to poor intake and persistent loss will continue with ivf. also on fludrocortisone. follows with Dr Rafi peterson at [facility] will ask dr ayala to see. (4) Intractable vomiting Status: Acute Response to Treatment: Improving Problem Text: due gastroparesis continue with zofran and compazine will also start metoclopramide. continue IVF. continue PPI still not tolerating po (5) Diabetes Status: Chronic Problem Text: type 1 diabetes diagnosed in 2016 patient hypoglycemic this am will hold long acting insulin for now, will continue lispro sliding scale. Still not able to eat solid food. (6) OCD (obsessive compulsive disorder) Status: Chronic Problem Text: also has anxiety and depression will continue with home medications. (7) Protein-calorie malnutrition Status: Chronic (8) Asthma Status: Chronic (9) Chronic pancreatitis Status: Chronic Problem Text: has pancreatic calcifications in CT abdomen. 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 Has cosyntropin test before and acth levels which did not show any adrenal insufficiency will check pth level. fsh and lh levels did not suggest any hypogonadism. does not have hypothyroidism. will recheck am cortisol. Plan/VTE VTE Prophylaxis Ordered?: Yes (TEDs, sequentials, knee high compression, heparin 5,000 units SC every 8 hours) Plan IVF: Initiate (NS @ 75 mLs/hr) Diet: Make NPO Activity: Continue Current (OOB ad pamela to chair with assistance) Diagnostics: Check Labs, Repeat Labs in AM, Nuclear Med Study Anticipated Discharge: Home VS, I&O, 24H, [facility] Vital Signs/I&O Vital Signs Date Time Temp Pulse Resp B/P (MAP) Pulse Ox O2 Delivery O2 Flow Rate FiO2 11/29/16 08:00 77 168/102 (124) 99 124/71 (88) 117 79/49 (59) 11/29/16 08:00 97.2 96 Room Air 11/29/16 06:10 18 I&O- Last 24 Hours up to 6 AM 11/29/16 06:00 Intake Total 1980 ml Output Total 100 ml Balance 1880 ml Laboratory Data 24H LABS Laboratory Tests 2 11/28/16 11:26: Bedside Glucose (Misc Panel) 155H 11/28/16 16:47: Bedside Glucose (Misc Panel) 200H 11/28/16 19:38: Bedside Glucose (Misc Panel) 167H 11/29/16 06:29: White Blood Count 10.5H, Red Blood Count 4.13, Hemoglobin 12.4, Hematocrit 36.3 , Mean Corpuscular Volume 87.7, Mean Corpuscular Hemoglobin 30.1, Mean Corpuscular Hemoglobin Concent 34.3, Red Cell Distribution Width 12.3, Platelet Count 240, Neutrophils (%) (Auto) 47.8, Lymphocytes (%) (Auto) 37.3, Monocytes ( %) (Auto) 5.0, Eosinophils (%) (Auto) 7.7H, Basophils (%) (Auto) 0.6, Neutrophils # (Auto) 5.0, Lymphocytes # (Auto) 4.1, Monocytes # (Auto) 0.5, Eosinophils # (Auto) 0.8H, Basophils # (Auto) 0.1, Large Unclassified Cells % 1.7, Large Unclassified Cells # 0.2, Anion Gap 8, Glomerular Filtration Rate > 60.0, Blood Urea Nitrogen 6L, Creatinine 0.54L, Sodium Level 141, Potassium Level 3.4L, Chloride Level 103, Carbon Dioxide Level 30, Calcium Level 7.4L, Aspartate Amino Transf (AST/SGOT) 11L, Alanine Aminotransferase (ALT/SGPT) 17, Alkaline Phosphatase 73, Total Bilirubin 0.6, Total Protein 6.2L, Albumin 2.9L, Albumin/Globulin Ratio 0.88L 11/29/16 07:51: Cortisol AM Sample 17.4 CBC/BMP Laboratory Tests 11/29/16 06:29 Red Blood Count 4.13, Mean Corpuscular Volume 87.7, Mean Corpuscular Hemoglobin 30.1, Mean Corpuscular Hemoglobin Concent 34.3, Red Cell Distribution Width 12.3 , Neutrophils (%) (Auto) 47.8, Lymphocytes (%) (Auto) 37.3, Monocytes (%) (Auto ) 5.0, Eosinophils (%) (Auto) 7.7 H, Basophils (%) (Auto) 0.6, Neutrophils # ( Auto) 5.0, Lymphocytes # (Auto) 4.1, Monocytes # (Auto) 0.5, Eosinophils # (Auto ) 0.8 H, Basophils # (Auto) 0.1, Calcium Level 7.4 L, Aspartate Amino Transf ( AST/SGOT) 11 L, Alanine Aminotransferase (ALT/SGPT) 17, Alkaline Phosphatase 73 , Total Bilirubin 0.6, Total Protein 6.2 L, Albumin 2.9 L Microbiology Microbiology 11/23/16 Blood Culture - Final, Complete NO GROWTH AFTER 5 DAYS 11/23/16 Blood Culture - Final, Complete NO GROWTH AFTER 5 DAYS 11/23/16 Urine Culture - Final, Complete WILLIAM AVELAR MD Nov 29, 2016 10:25
[2016-11-29 10:34] LABS: PHOSPHORUS LEVEL 2.7 MG/DL (2.5-4.9)
[2016-11-29 11:00] LABS: MAGNESIUM LEVEL 0.7 MG/DL (1.8-2.4)
[2016-11-29] MEDS: SUCRALFATE 1 GM TAB PO SCH ×3 (12:00→20:46)
[2016-11-29] MEDS: MAG SULF 1GM/100ML (MAG RUN) 1 GM in APPROPRIATE DILUENT 1 EA IV SCH ×4 (12:26→17:47)
[2016-11-29 14:00] VITALS: BP_SYST 104; BP_SYST 139; BP_SYST 67; BP_DIAS 44; BP_DIAS 61; BP_DIAS 68
[2016-11-29 18:00] VITALS: BP_SYST 110; BP_SYST 140; BP_SYST 62; BP_DIAS 40; BP_DIAS 60; BP_DIAS 67
--- NOTE | 2016-11-29 20:34 | CR ---
DATE OF CONSULTATION: 11/29/2016 REFERRING PHYSICIAN: Dr. Valerio INDICATION: Orthostatic hypotension. HISTORY OF PRESENT ILLNESS: Ms. Moore is a 30-year-old female who has a history of type 1 diabetes for approximately 1 year, together with history of depression , asthma and obsessive compulsive disorder. She has had fairly longstanding history for at least a year of orthostatic hypotension. She tells me that she was hospitalized for this problem in this facility, but also in [facility] in [place]. Initially the symptoms were tremendously symptomatic but she was prescribed fludrocortisone that she was taking 0.1 mg daily and apparently brought fairly substantial improvement. But then she started having trouble with peripheral edema and the symptomatic orthostatic hypotension was no longer present so she was in the process of weaning off from the drug with the assistance of her primary care physician, Dr. Wilson. This time she came to the hospital because of nausea and vomiting believed to be due to gastroparesis. She was though noted to have very profound orthostatic hypotension that was been documented on a daily basis. She denies any recent history of syncope, even though there is a remote history of syncope with her initial presentation. Before she got this episode of nausea and vomiting she was quite functional. She tells me that she can walk outside of the house without any significant difficulty. She denies any chest pain or shortness of breath. OUTPATIENT MEDICATIONS: - fludrocortisone half a tablet of 0.5 mg only once a week - fluvoxamine 100 mg at night - insulin Humalog - Effexor 50 mg at night - clonazepam 0.5 mg twice a day as needed for anxiety - albuterol PAST MEDICAL HISTORY: 1. Type 1 diabetes as of 2015. 2. Orthostatic hypotension. 3. Anxiety / OCD. 4. Depression. 5. History of Staphylococcus aureus UTIs. SURGICAL HISTORY: Positive for tympanostomy tubes, adenoidectomy, sinus surgery. FAMILY HISTORY: Father is type 2 diabetic but he is very functional and does not have any heart disease. Mother is healthy. There is no first-degree history of sudden cardiac or cardiac problems. SOCIAL HISTORY: The patient is single. She lives with her parents and her brother. Does not smoke, does not drink. She had a part-time job until recently. REVIEW OF SYSTEMS: She denies any recent fever or chills. She has had nausea and vomiting a few days. No abdominal pain though unless she is throwing up. No chest pain or shortness of breath. No bleeding history. No symptoms suggestive of UTI. No recent peripheral edema. No syncopal events. PHYSICAL EXAMINATION: Ms. Moore is a young white female. I do not appreciate any obvious distress. She lays in bed. The documented vital signs reveal supine blood pressure 139/68 , sitting 104/61 and standing 67/44. Similar readings have been reproducible on numerous occasions. Heart rate has been 70s and 80s, occasionally 200. She is afebrile. Saturation 96% on room air. JVP is not up. Lungs are clear to auscultation. Heart exam reveals regular rhythm. I do not appreciate any gallop, rub or murmur. Abdomen reveals mild tenderness in the epigastrium but is soft and good bowel sounds. Extremities are free of edema. Peripheral pulses are of good quality. She has preserved sensation. Neurologically she is intact. She is alert and oriented and appropriate. No focal weaknesses appreciated. Weight has been documented as 63.6 kg. LABORATORY DATA: This morning she had normal BMP but for a potassium 3.4, glucose was 160, magnesium was 0.7, has been since replaced, albumin was 2.9, cortisol was 17.4 which is within normal range. CBC is normal as well. ECG is normal tracing. She had CT of the abdomen and pelvis which reveals calcifications suggestive of chronic pancreatitis and she also had some very subtle coronary artery calcifications which are certainly unusual in this age. She had MRI of the pituitary that did not indicate any abnormalities. ASSESSMENT/PLAN: Ms. Moore is a young 30-year-old white female who has history of diabetic gastroparesis and also history of orthostatic hypotension. She previously was on fludrocortisone, that as per history provided by the patient was reasonably successful, but she developed fairly severe peripheral edema as a complication. The role of fludrocortisone treatment of orthostatic hypotension is less well established than midodrine and I am going to give her a small dose, 2.5 twice a day. We will continue monitoring her orthostatic symptoms, usually this medication is effective. Simultaneously, she needs to have good oral intake of both fluid and sodium. I also would advocate use of compression stockings to be applied first thing in the morning and removed when she goes to bed. I am hoping when these interventions are implemented that she will do well. I do not see anything in her history to suggest cardiac dysfunction. Even though some coronary calcifications were seen on CT, it would be highly unlikely that this young woman has obstructive coronary artery disease, even though she is a type 1 diabetic, she never smoked and she does not have additional risk factors for CAD. KRISTINE
[2016-11-29] MEDS: QUEtiapine FUMARATE 50 MG TAB PO SCH (20:47)
[2016-11-29] MEDS: fluvoxaMINE MALEATE 50 MG TAB PO SCH (20:47)
[2016-11-29 22:00] VITALS: BP_SYST 106; BP_SYST 113; BP_SYST 80; BP_DIAS 42; BP_DIAS 60; BP_DIAS 73
[2016-11-30] MEDS: KCL 40MEQ IN D5/NS 1000ML 1,000 ML IV SCH ×2 (00:02→17:35)
[2016-11-30 02:00] VITALS: BP_SYST 110; BP_SYST 129; BP_SYST 89; BP_DIAS 52; BP_DIAS 61; BP_DIAS 83
[2016-11-30 06:00] VITALS: BP 126/80
[2016-11-30] MEDS: HEPARIN SOD (PORCINE) 5000 UNITS/ML VIAL SC SCH ×3 (06:00→21:50)
[2016-11-30] MEDS: METOCLOPRAMIDE INJ 10MG/2ML VIAL (J2765) IV SCH ×3 (06:39→21:53)
[2016-11-30 07:07] LABS: BASO % 0.4 % (0.0-1.0); EOS # 1.2 K/mm3 (0.0-0.50); EOS % 10.1 % (0.0-3.0); LARGE UNSTAINED CELL # 0.2 K/mm3 (0.0-0.4); LARGE UNSTAINED CELL % 1.4 % (0.0-4.0); LYMPH # 3.8 K/mm3 (1.5-4.5); MEAN CORPUSCULAR HEMOGLOBIN 30.2 pg (27.0-33.0); MEAN CORPUSCULAR HGB CONC 34.3 g/dl (32.0-36.5); MEAN CORPUSCULAR VOLUME 88.1 fl (80.0-96.0); MONO # 0.7 K/mm3 (0.0-0.8); MONO % 5.6 % (0.0-5.0); NEUTROPHILS % 51.5 % (36.0-66.0); PLATELET COUNT, AUTOMATED 233 k/mm3 (150-450); RED CELL DISTRIBUTION WIDTH 12.4 % (11.5-14.5); WHITE BLOOD COUNT 11.6 K/mm3 (4.0-10.0)
[2016-11-30] MEDS: SUCRALFATE 1 GM TAB PO SCH ×4 (07:30→21:52)
[2016-11-30] MEDS: HumaLOG INSULIN (NovoLOG) PER UNIT SC SCH ×4 (07:30→20:39)
[2016-11-30 07:32] LABS: ALBUMIN 2.8 GM/DL (3.2-5.2); ALBUMIN/GLOBULIN RATIO 0.97 (1.00-1.93); ALKALINE PHOSPHATASE 74 U/L (45-117); ALT/SGPT 14 U/L (12-78); ANION GAP 7 MEQ/L (8-16); AST/SGOT 10 U/L (15-37); BILIRUBIN,TOTAL 0.3 MG/DL (0.2-1.0); BLOOD UREA NITROGEN 6 MG/DL (7-18); CALCIUM LEVEL 7.9 MG/DL (8.5-10.1); CARBON DIOXIDE LEVEL 31 MEQ/L (21-32); CHLORIDE LEVEL 105 MEQ/L (98-107); CREATININE FOR GFR 0.59 MG/DL (0.55-1.02); GLOMERULAR FILTRATION RATE > 60.0 (>60); GLUCOSE, FASTING 193 MG/DL (70-105); POTASSIUM SERUM 3.3 MEQ/L (3.5-5.1); SODIUM LEVEL 143 MEQ/L (136-145); TOTAL PROTEIN 5.7 GM/DL (6.4-8.2)
[2016-11-30 07:55] LABS: FREE T4 1.67 NG/DL (0.76-1.46); MAGNESIUM LEVEL 1.1 MG/DL (1.8-2.4)
[2016-11-30] MEDS: FLUDROCORTISONE ACETATE 0.1 MG TAB PO SCH (08:23)
[2016-11-30] MEDS: PANTOPRAZOLE 40MG INJ (PROTONIX) (C9113) IV SCH ×2 (08:23→21:53)
[2016-11-30] MEDS: MIDODRINE 2.5 MG TAB PO SCH ×2 (08:23→15:15)
[2016-11-30] MEDS: POTASSIUM CHLORIDE 10 MEQ SR TABLET PO SCH ×3 (08:24→21:51)
[2016-11-30] MEDS: ONDANSETRON 4MG/2ML VIAL (J2405) IV PRN (08:31)
--- NOTE | 2016-11-30 12:23 | REP ---
Clinical: Intractable vomiting and abdominal pain. Technique: Arnett scale ultrasound using curved array transducer. Findings: Liver and visualized pancreas are normal in contour, size, echogenicity without focal hepatic or pancreatic lesion identified. Gallbladder demonstrates mild wall thickening without gallstones. No sonographic Bobby's sign was elicited. The common bile duct is mildly dilated and measures 8 mm diameter. The right kidney is normal in reniform shape without hydronephrosis and measures 10.9 x 6.0 x 4.7 cm with 1.3 cm mid pole simple cyst. No ascites. Impression: 1. Mild gallbladder wall thickening and minimally distended common bile duct. Findings are nonspecific. 2. Remainder of the examination appears normal. Signed by Esteban Connolly MD 11/30/2016 12:14 P
[2016-11-30 13:03] VITALS: BP_SYST 169; BP_SYST 89; BP_DIAS 103; BP_DIAS 54
[2016-11-30] MEDS ORDERED: PROPOFOL 500 MG/50 ML VIAL As Ordered ONE (13:37)
[2016-11-30] MEDS ORDERED: LIDOCAINE 2% INJ 100 MG/5 ML SDV (FOR ANES.) As Ordered ONE (13:37)
--- NOTE | 2016-11-30 14:11 | ROOR ---
Patient Name: Deja Moore Procedure Date: 11/30/2016 1:59 PM Date of : 1985 Age: 30 Room: [facility] Gender: Female Note Status: Finalized Procedure: Upper GI endoscopy Indications: Gastroparesis, Nausea with vomiting Providers: Vitor ORDONEZ MD Referring MD: Farhad Wilson MD Requesting Provider: 2. Inpatient 2. Inpatient Medicines: Monitored Anesthesia Care Complications: No immediate complications. Procedure: Pre-Anesthesia Assessment: - The heart rate, respiratory rate, oxygen saturations, blood pressure, adequacy of pulmonary ventilation, and response to care were monitored throughout the procedure. The Endoscope was introduced through the mouth, and advanced to the second part of duodenum. The upper GI endoscopy was accomplished without difficulty. The patient tolerated the procedure well. Findings: The esophagus was normal. The stomach was normal. The examined duodenum was normal. Impression: - Normal esophagus. - Normal stomach. - Normal examined duodenum. - No specimens collected. Recommendation: - Continue present medications. - Gastroparesis diet: - Eat smaller, more frequent meals throughout the day. - Low fat diet. - Liquid/soft foods are tolerated better than solid foods. - Low fiber/well cooked vegetables are tolerated better than high fiber/fibrous foods/raw vegetables. - Avoid medications that inhibit gastric/intestinal motility such as narcotic medications. Vitor Ordonez MD Vitor ORDONEZ MD 11/30/2016 2:11:28 PM This report has been signed electronically. Number of Addenda: 0 Note Initiated On: 11/30/2016 1:59 PM Estimated Blood Loss: Estimated blood loss: none.
[2016-11-30 14:14] LABS: ALDOSTERONE <1.0 ng/dL (0.0-30.0)
[2016-11-30] MEDS: MAG SULF 1GM/100ML (MAG RUN) 1 GM in APPROPRIATE DILUENT 1 EA IV SCH ×2 (15:14→16:26)
--- NOTE | 2016-11-30 15:26 | REP ---
HEPATOBILIARY SCAN: HISTORY: Nausea vomiting biliary dyskinesia. TECHNIQUE: 6.0 mCi technetium 99m mebrofenin is injected and sequential anterior abdominal images are acquired. FINDINGS: The initial hepatocellular parenchymal uptake phase is normal and homogeneous. Intrahepatic biliary tract labeling is observed at 15-20 minutes. The gallbladder is first labeled 25-minute image. The small bowel is labeled on the 25-minute image and normal washout from the liver parenchyma is seen on subsequent images. IMPRESSION: Normal hepatobiliary scan. Signed by Gilbert Blunt MD 11/30/2016 03:44 P
--- NOTE | 2016-11-30 20:44 | IPNPDOC ---
Date Seen The patient was seen on 11/30/16. Progress Note Hospitalist Progress Note Subjective: Patient states that she has not vomited since yesterday but she is nauseated. I was called by nursing this afternoon, since when the patient attempted to stand up to have her orthostatic vital signs checked, she briefly lost consciousness. She did not fall or hurt herself, as staff immediately caught her and laid her on the bed. Objective: Physical Exam: Vitals: Vital Sign - Last 24 Hours 11/29/16 11/29/16 11/30/16 11/30/16 22:00 22:00 02:00 06:00 Temp 97.6 98.7 Pulse 80 80 72 82 93 95 112 101 Resp 18 18 B/P (MAP) 113/73 (86) 113/73 (86) 129/83 (98) 126/80 (95) 106/60 (75) 110/61 (77) 80/42 (55) 89/52 (64) Pulse Ox 96 96 O2 Delivery Room Air Room Air 11/30/16 11/30/16 11/30/16 11/30/16 06:00 09:00 13:03 14:15 Temp 98.2 Pulse 82 77 74 104 Resp 18 B/P (MAP) 126/80 (95) 169/103 (125) 130/87 (101) 89/54 (66) Pulse Ox 94 O2 Delivery Room Air Room Air 11/30/16 14:26 Pulse 70 Resp 18 B/P (MAP) 130/80 (97) Pulse Ox 95 General: Awake, alert, no acute distress HEENT: Normocephalic, atraumatic, extraocular movements intact CV: Regular rate and rhythm Lungs: Clear to auscultation bilaterally Abd: Soft, diffuse tenderness to palpation Extremities: No edema Neuro: Alert and oriented 3, normal speech Psych: Normal Mood and affect Labs and Imaging: Laboratory Tests 11/30/16 06:29 Red Blood Count 3.93 L, Mean Corpuscular Volume 88.1, Mean Corpuscular Hemoglobin 30.2, Mean Corpuscular Hemoglobin Concent 34.3, Red Cell Distribution Width 12.4, Neutrophils (%) (Auto) 51.5, Lymphocytes (%) (Auto) 31.0, Monocytes (%) (Auto) 5.6 H, Eosinophils (%) (Auto) 10.1 H, Basophils (%) ( Auto) 0.4, Neutrophils # (Auto) 6.0, Lymphocytes # (Auto) 3.8, Monocytes # (Auto ) 0.7, Eosinophils # (Auto) 1.2 H, Basophils # (Auto) 0.0, Calcium Level 7.9 L, Aspartate Amino Transf (AST/SGOT) 10 L, Alanine Aminotransferase (ALT/SGPT) 14, Alkaline Phosphatase 74, Total Bilirubin 0.3, Total Protein 5.7 L, Albumin 2.8 L Assessment and Plan: 30-year-old female with diabetes mellitus type 1, orthostatic hypotension, anxiety, OCD, asthma, depression, gastroparesis who presented to the emergency department with intractable vomiting. 1. Gastroparesis flare: This has improved, but the patient is going for scope with Dr. Carter today. Continue Reglan, PPI, Carafate. Continue IV fluids with potassium. 2. Orthostatic hypotension: The patient was seen and examined by Dr. Leiva, who has recommended midodrine and compression stockings. She is also still on Florinef. Echocardiogram showed a normal EF and normal diastolic function. 3. Depression, anxiety and OCD: Continue home Luvox, Seroquel, Klonopin. 4. Diabetes mellitus type 1: Patient usually takes Lantus 15 units every morning at home. This has been on hold while she is here since she has not been eating much. However, given that she is a type I, it is very important to continue basal insulin. For this reason, we'll start her on Levemir 4 units in the morning. We will continue sliding scale insulin. 5. Asthma currently controlled. Continue as needed albuterol. 6. 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 Prior workup for adrenal insufficiency was unremarkable. PTH level and a.m. cortisol are also normal. Prior FSH and LH levels did not suggest any hypogonadism. 7. Possible UTI: Initial UA showed 3+ leuk esterase, too numerous to count WBCs , and 1+ bacteria, but the urine culture appeared to be contaminated. The patient continues to have mild leukocytosis, although it is overall improved from when she first arrived. She is afebrile, but we will recheck a UA. DVT prophylaxis: Heparin Dispo: pending GI workup and improvement in orthostatic hypotension. VS, I&O, 24H, [place] Vital Signs/I&O Vital Signs Date Time Temp Pulse Resp B/P (MAP) Pulse Ox O2 Delivery O2 Flow Rate FiO2 11/30/16 14:26 70 18 130/80 (97) 95 11/30/16 14:15 98.2 Room Air I&O- Last 24 Hours up to 6 AM 11/30/16 06:00 Intake Total 1720 ml Output Total 300 ml Balance 1420 ml Laboratory Data 24H LABS Laboratory Tests 2 11/30/16 06:29: White Blood Count 11.6H, Red Blood Count 3.93L, Hemoglobin 11.9L, Hematocrit 34.6L, Mean Corpuscular Volume 88.1, Mean Corpuscular Hemoglobin 30.2, Mean Corpuscular Hemoglobin Concent 34.3, Red Cell Distribution Width 12.4, Platelet Count 233, Neutrophils (%) (Auto) 51.5, Lymphocytes (%) (Auto) 31.0, Monocytes ( %) (Auto) 5.6H, Eosinophils (%) (Auto) 10.1H, Basophils (%) (Auto) 0.4, Neutrophils # (Auto) 6.0, Lymphocytes # (Auto) 3.8, Monocytes # (Auto) 0.7, Eosinophils # (Auto) 1.2H, Basophils # (Auto) 0.0, Large Unclassified Cells % 1.4, Large Unclassified Cells # 0.2, Anion Gap 7L, Glomerular Filtration Rate > 60.0, Blood Urea Nitrogen 6L, Creatinine 0.59, Sodium Level 143, Potassium Level 3.3L, Chloride Level 105, Carbon Dioxide Level 31, Calcium Level 7.9L, Aspartate Amino Transf (AST/SGOT) 10L, Alanine Aminotransferase (ALT/SGPT) 14, Alkaline Phosphatase 74, Total Bilirubin 0.3, Total Protein 5.7L, Albumin 2.8L, Magnesium Level 1.1L, Albumin/Globulin Ratio 0.97L, Free Thyroxine 1.67H 11/30/16 13:45: Bedside Glucose (Misc Panel) 176H 11/30/16 17:27: Bedside Glucose (Misc Panel) 227H CBC/BMP Laboratory Tests 11/30/16 06:29 Red Blood Count 3.93 L, Mean Corpuscular Volume 88.1, Mean Corpuscular Hemoglobin 30.2, Mean Corpuscular Hemoglobin Concent 34.3, Red Cell Distribution Width 12.4, Neutrophils (%) (Auto) 51.5, Lymphocytes (%) (Auto) 31.0, Monocytes (%) (Auto) 5.6 H, Eosinophils (%) (Auto) 10.1 H, Basophils (%) ( Auto) 0.4, Neutrophils # (Auto) 6.0, Lymphocytes # (Auto) 3.8, Monocytes # (Auto ) 0.7, Eosinophils # (Auto) 1.2 H, Basophils # (Auto) 0.0, Calcium Level 7.9 L, Aspartate Amino Transf (AST/SGOT) 10 L, Alanine Aminotransferase (ALT/SGPT) 14, Alkaline Phosphatase 74, Total Bilirubin 0.3, Total Protein 5.7 L, Albumin 2.8 L Microbiology Microbiology 11/23/16 Blood Culture - Final, Complete NO GROWTH AFTER 5 DAYS 11/23/16 Blood Culture - Final, Complete NO GROWTH AFTER 5 DAYS 11/23/16 Urine Culture - Final, Complete PEPE LANGFORD Nov 30, 2016 20:44
[2016-11-30] MEDS: QUEtiapine FUMARATE 50 MG TAB PO SCH (21:51)
[2016-11-30] MEDS: fluvoxaMINE MALEATE 50 MG TAB PO SCH (21:52)
[2016-11-30 22:00] VITALS: BP_SYST 125; BP_SYST 127; BP_SYST 132; BP_DIAS 77; BP_DIAS 81
[2016-12-01] MEDS: METOCLOPRAMIDE INJ 10MG/2ML VIAL (J2765) IV SCH (05:56)
[2016-12-01 06:00] VITALS: BP_SYST 101; BP_SYST 125; BP_SYST 81; BP_DIAS 53; BP_DIAS 57; BP_DIAS 78
[2016-12-01] MEDS: HEPARIN SOD (PORCINE) 5000 UNITS/ML VIAL SC SCH (06:00)
[2016-12-01 07:07] LABS: BASO % 0.4 % (0.0-1.0); EOS # 0.8 K/mm3 (0.0-0.50); EOS % 10.8 % (0.0-3.0); LARGE UNSTAINED CELL # 0.2 K/mm3 (0.0-0.4); LYMPH # 2.4 K/mm3 (1.5-4.5); LYMPH % 32.2 % (24.0-44.0); MEAN CORPUSCULAR HEMOGLOBIN 30.8 pg (27.0-33.0); MEAN CORPUSCULAR HGB CONC 35.3 g/dl (32.0-36.5); MEAN CORPUSCULAR VOLUME 87.3 fl (80.0-96.0); MONO # 0.4 K/mm3 (0.0-0.8); MONO % 5.4 % (0.0-5.0); NEUTROPHILS # 3.7 K/mm3 (1.8-7.7); NEUTROPHILS % 49.2 % (36.0-66.0); PLATELET COUNT, AUTOMATED 221 k/mm3 (150-450); RED CELL DISTRIBUTION WIDTH 12.4 % (11.5-14.5); WHITE BLOOD COUNT 7.5 K/mm3 (4.0-10.0)
[2016-12-01 07:43] LABS: ALBUMIN 2.6 GM/DL (3.2-5.2); ALBUMIN/GLOBULIN RATIO 0.87 (1.00-1.93); ALKALINE PHOSPHATASE 72 U/L (45-117); ALT/SGPT 15 U/L (12-78); ANION GAP 6 MEQ/L (8-16); AST/SGOT 9 U/L (15-37); BILIRUBIN,TOTAL 0.3 MG/DL (0.2-1.0); BLOOD UREA NITROGEN 6 MG/DL (7-18); CALCIUM LEVEL 7.8 MG/DL (8.5-10.1); CARBON DIOXIDE LEVEL 31 MEQ/L (21-32); CHLORIDE LEVEL 105 MEQ/L (98-107); GLOMERULAR FILTRATION RATE > 60.0 (>60); GLUCOSE, FASTING 196 MG/DL (70-105); MAGNESIUM LEVEL 1.1 MG/DL (1.8-2.4); POTASSIUM SERUM 3.5 MEQ/L (3.5-5.1); SODIUM LEVEL 142 MEQ/L (136-145); TOTAL PROTEIN 5.6 GM/DL (6.4-8.2)
[2016-12-01] MEDS: SUCRALFATE 1 GM TAB PO SCH ×4 (08:14→20:35)
[2016-12-01] MEDS: MIDODRINE 2.5 MG TAB PO SCH ×2 (08:14→17:07)
[2016-12-01] MEDS: POTASSIUM CHLORIDE 10 MEQ SR TABLET PO SCH ×2 (08:14→20:31)
[2016-12-01] MEDS: FLUDROCORTISONE ACETATE 0.1 MG TAB PO SCH (08:14)
[2016-12-01] MEDS: LEVEMIR (INSULIN DETEMIR) 1 UNITS/0.01ML SC SCH (08:15)
[2016-12-01] MEDS: HumaLOG INSULIN (NovoLOG) PER UNIT SC SCH ×4 (08:15→20:31)
[2016-12-01] MEDS: KCL 40MEQ IN D5/NS 1000ML 1,000 ML IV SCH (08:16)
[2016-12-01] MEDS: MAGNESIUM OXIDE 400 MG TAB (MAG-OX) PO SCH ×2 (11:00→20:35)
[2016-12-01] MEDS: MAG SULF 1GM/100ML (MAG RUN) 1 GM in APPROPRIATE DILUENT 1 EA IV SCH ×2 (11:01→12:09)
[2016-12-01] MEDS: METOCLOPRAMIDE 10 MG TAB PO SCH ×3 (11:34→20:35)
[2016-12-01 14:00] VITALS: BP_SYST 115; BP_SYST 116; BP_SYST 82; BP_DIAS 52; BP_DIAS 56; BP_DIAS 68
--- NOTE | 2016-12-01 16:42 | IPNPDOC ---
Date Seen The patient was seen on 12/01/16. Progress Note Hospitalist Progress Note Subjective: Patient states she is eating without difficulty Objective: Physical Exam: Vitals: Vital Sign - Last 24 Hours 11/30/16 11/30/16 12/01/16 12/01/16 21:00 22:00 06:00 08:00 Pulse 101 75 99 96 123 B/P (MAP) 127/77 (94) 125/78 (94) 132/81 (98) 101/57 (72) 125/77 (93) 81/53 (62) O2 Delivery Room Air Room Air 12/01/16 12/01/16 14:00 14:00 Temp 98.3 Pulse 89 89 101 110 Resp 18 B/P (MAP) 116/68 (84) 116/68 (84) 115/56 (75) 82/52 (62) Pulse Ox 97 O2 Delivery Room Air General: Awake, alert, no acute distress HEENT: Normocephalic, atraumatic, extraocular movements intact CV: Regular rate and rhythm Lungs: Clear to auscultation bilaterally Abd: Soft, nontender, nondistended Extremities: No edema Neuro: Alert and oriented 3, normal speech Psych: Normal Mood and affect Labs and Imaging: Laboratory Tests 12/01/16 06:41 Red Blood Count 3.65 L, Mean Corpuscular Volume 87.3, Mean Corpuscular Hemoglobin 30.8, Mean Corpuscular Hemoglobin Concent 35.3, Red Cell Distribution Width 12.4, Neutrophils (%) (Auto) 49.2, Lymphocytes (%) (Auto) 32.2, Monocytes (%) (Auto) 5.4 H, Eosinophils (%) (Auto) 10.8 H, Basophils (%) ( Auto) 0.4, Neutrophils # (Auto) 3.7, Lymphocytes # (Auto) 2.4, Monocytes # (Auto ) 0.4, Eosinophils # (Auto) 0.8 H, Basophils # (Auto) 0.0, Calcium Level 7.8 L, Aspartate Amino Transf (AST/SGOT) 9 L, Alanine Aminotransferase (ALT/SGPT) 15, Alkaline Phosphatase 72, Total Bilirubin 0.3, Total Protein 5.6 L, Albumin 2.6 L Assessment and Plan: 30-year-old female with diabetes mellitus type 1, orthostatic hypotension, anxiety, OCD, asthma, depression, gastroparesis who presented to the emergency department with intractable vomiting. 1. Gastroparesis flare: This has improved; EGD and HIDA scan were unremarkable. Continue Reglan, PPI, Carafate. Stop IVF. 2. Orthostatic hypotension: The patient was seen and examined by Dr. Leiva, who has recommended midodrine and compression stockings. She is also still on Florinef. Echocardiogram showed a normal EF and normal diastolic function. Orthostats improved last night, but this morning were still bad. However, they were checked this morning 2hrs prior to receiving midodrine. Will ask staff to only check after receiving midodrine. 3. Depression, anxiety and OCD: Continue home Luvox, Seroquel, Klonopin. 4. Diabetes mellitus type 1: Patient usually takes Lantus 15 units every morning at home. This has been on hold while she is here since she has not been eating much. However, given that she is a type I, it is very important to continue basal insulin. For this reason, we have started her on Levemir 4 units in the morning. We will continue sliding scale insulin. 5. Asthma currently controlled. Continue as needed albuterol. 6. 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 Prior workup for adrenal insufficiency was unremarkable. PTH level and a.m. cortisol are also normal. Prior FSH and LH levels did not suggest any hypogonadism. 7. Leukocytosis: Initial UA showed 3+ leuk esterase, too numerous to count WBCs , and 1+ bacteria, but the urine culture appeared to be contaminated. She is afebrile, repeat UA is improved. WBC now WNL; I suspect this was reactive secondary to gastroparesis flare. DVT prophylaxis: Heparin Dispo: pending improvement in orthostatic hypotension. With the patient's permission, I discussed the patient's care with her father over the phone. All questions were answered. VS, I&O, 24H, Fishbone Vital Signs/I&O Vital Signs Date Time Temp Pulse Resp B/P (MAP) Pulse Ox O2 Delivery O2 Flow Rate FiO2 12/01/16 14:00 89 116/68 (84) 101 115/56 (75) 110 82/52 (62) 12/01/16 14:00 98.3 18 97 Room Air I&O- Last 24 Hours up to 6 AM 12/01/16 06:00 Intake Total 1160 ml Output Total 400 ml Balance 760 ml Laboratory Data 24H LABS Laboratory Tests 2 11/30/16 17:27: Bedside Glucose (Misc Panel) 227H 11/30/16 19:46: Bedside Glucose (Misc Panel) 173H 12/01/16 06:41: White Blood Count 7.5, Red Blood Count 3.65L, Hemoglobin 11.2L, Hematocrit 31.8L , Mean Corpuscular Volume 87.3, Mean Corpuscular Hemoglobin 30.8, Mean Corpuscular Hemoglobin Concent 35.3, Red Cell Distribution Width 12.4, Platelet Count 221, Neutrophils (%) (Auto) 49.2, Lymphocytes (%) (Auto) 32.2, Monocytes ( %) (Auto) 5.4H, Eosinophils (%) (Auto) 10.8H, Basophils (%) (Auto) 0.4, Neutrophils # (Auto) 3.7, Lymphocytes # (Auto) 2.4, Monocytes # (Auto) 0.4, Eosinophils # (Auto) 0.8H, Basophils # (Auto) 0.0, Large Unclassified Cells % 2.0, Large Unclassified Cells # 0.2, Anion Gap 6L, Glomerular Filtration Rate > 60.0, Blood Urea Nitrogen 6L, Creatinine 0.60, Sodium Level 142, Potassium Level 3.5, Chloride Level 105, Carbon Dioxide Level 31, Calcium Level 7.8L, Aspartate Amino Transf (AST/SGOT) 9L, Alanine Aminotransferase (ALT/SGPT) 15, Alkaline Phosphatase 72, Total Bilirubin 0.3, Total Protein 5.6L, Albumin 2.6L, Magnesium Level 1.1L, Albumin/Globulin Ratio 0.87L 12/01/16 11:21: Bedside Glucose (Misc Panel) 81 12/01/16 13:07: Urine Appearance CLEAR, Urine Color STRAW, Urine pH 7.0, Urine Specific [place] 1.010, Urine Protein NEGATIVE, Urine Glucose (UA) NEGATIVE, Urine Ketones NEGATIVE, Urine Urobilinogen 0.2, Urine Bilirubin NEGATIVE, Urine Leukocyte Esterase TRACEH, Urine Blood 2+H, Urine Nitrite NEGATIVE, Urine WBC (Auto) 2, Urine RBC (Auto) 2, Urine Hyaline Casts (Auto) 0, Urine Bacteria (Auto) NEGATIVE , Urine Squamous Epithelial Cells 1, Urine Mucus (Auto) SMALL, Urine Sperm (Auto ) 12/01/16 16:24: CBC/BMP Laboratory Tests 12/01/16 06:41 Red Blood Count 3.65 L, Mean Corpuscular Volume 87.3, Mean Corpuscular Hemoglobin 30.8, Mean Corpuscular Hemoglobin Concent 35.3, Red Cell Distribution Width 12.4, Neutrophils (%) (Auto) 49.2, Lymphocytes (%) (Auto) 32.2, Monocytes (%) (Auto) 5.4 H, Eosinophils (%) (Auto) 10.8 H, Basophils (%) ( Auto) 0.4, Neutrophils # (Auto) 3.7, Lymphocytes # (Auto) 2.4, Monocytes # (Auto ) 0.4, Eosinophils # (Auto) 0.8 H, Basophils # (Auto) 0.0, Calcium Level 7.8 L, Aspartate Amino Transf (AST/SGOT) 9 L, Alanine Aminotransferase (ALT/SGPT) 15, Alkaline Phosphatase 72, Total Bilirubin 0.3, Total Protein 5.6 L, Albumin 2.6 L Microbiology Microbiology 11/23/16 Blood Culture - Final, Complete NO GROWTH AFTER 5 DAYS 11/23/16 Blood Culture - Final, Complete NO GROWTH AFTER 5 DAYS 11/23/16 Urine Culture - Final, Complete PEPE LANGFORD Dec 01, 2016 16:42
[2016-12-01] MEDS: PANTOPRAZOLE 40MG TAB (PROTONIX) PO SCH (20:35)
[2016-12-01] MEDS: fluvoxaMINE MALEATE 50 MG TAB PO SCH (20:35)
[2016-12-01] MEDS: QUEtiapine FUMARATE 50 MG TAB PO SCH (20:35)
[2016-12-01 22:00] VITALS: BP_SYST 106; BP_SYST 118; BP_SYST 122; BP_SYST 136; BP_DIAS 70; BP_DIAS 76; BP_DIAS 88
[2016-12-02 06:00] VITALS: BP 111/56
[2016-12-02 07:26] LABS: BASO % 0.5 % (0.0-1.0); EOS # 0.9 K/mm3 (0.0-0.50); LARGE UNSTAINED CELL # 0.1 K/mm3 (0.0-0.4); LARGE UNSTAINED CELL % 1.7 % (0.0-4.0); LYMPH # 2.2 K/mm3 (1.5-4.5); LYMPH % 25.7 % (24.0-44.0); MEAN CORPUSCULAR HEMOGLOBIN 30.3 pg (27.0-33.0); MEAN CORPUSCULAR HGB CONC 34.3 g/dl (32.0-36.5); MEAN CORPUSCULAR VOLUME 88.1 fl (80.0-96.0); MONO # 0.4 K/mm3 (0.0-0.8); MONO % 5.2 % (0.0-5.0); NEUTROPHILS # 4.7 K/mm3 (1.8-7.7); NEUTROPHILS % 55.9 % (36.0-66.0); PLATELET COUNT, AUTOMATED 232 k/mm3 (150-450); RED CELL DISTRIBUTION WIDTH 12.4 % (11.5-14.5); WHITE BLOOD COUNT 8.4 K/mm3 (4.0-10.0)
[2016-12-02] MEDS: METOCLOPRAMIDE 10 MG TAB PO SCH ×5 (07:30→22:09)
[2016-12-02] MEDS: SUCRALFATE 1 GM TAB PO SCH ×4 (07:30→22:09)
[2016-12-02] MEDS: HumaLOG INSULIN (NovoLOG) PER UNIT SC SCH ×4 (07:30→21:00)
[2016-12-02 07:41] LABS: ALBUMIN 2.8 GM/DL (3.2-5.2); ALBUMIN/GLOBULIN RATIO 0.97 (1.00-1.93); ALKALINE PHOSPHATASE 84 U/L (45-117); ALT/SGPT 17 U/L (12-78); ANION GAP 8 MEQ/L (8-16); AST/SGOT 12 U/L (15-37); BILIRUBIN,TOTAL 0.2 MG/DL (0.2-1.0); BLOOD UREA NITROGEN 12 MG/DL (7-18); CALCIUM LEVEL 8.3 MG/DL (8.5-10.1); CARBON DIOXIDE LEVEL 32 MEQ/L (21-32); CHLORIDE LEVEL 102 MEQ/L (98-107); CREATININE FOR GFR 0.59 MG/DL (0.55-1.02); GLOMERULAR FILTRATION RATE > 60.0 (>60); GLUCOSE, FASTING 194 MG/DL (70-105); POTASSIUM SERUM 3.5 MEQ/L (3.5-5.1); SODIUM LEVEL 142 MEQ/L (136-145); TOTAL PROTEIN 5.7 GM/DL (6.4-8.2)
[2016-12-02] MEDS: POTASSIUM CHLORIDE 10 MEQ SR TABLET PO SCH ×2 (09:00→21:00)
[2016-12-02] MEDS: MAG SULF 1GM/100ML (MAG RUN) 1 GM in APPROPRIATE DILUENT 1 EA IV SCH ×2 (09:00→10:00)
[2016-12-02] MEDS: MIDODRINE 2.5 MG TAB PO SCH ×2 (10:19→17:19)
[2016-12-02] MEDS: FLUDROCORTISONE ACETATE 0.1 MG TAB PO SCH (10:20)
[2016-12-02] MEDS: LEVEMIR (INSULIN DETEMIR) 1 UNITS/0.01ML SC SCH (10:20)
[2016-12-02] MEDS: MAGNESIUM OXIDE 400 MG TAB (MAG-OX) PO SCH ×2 (10:20→22:08)
[2016-12-02 11:20] VITALS: BP_SYST 105; BP_SYST 121; BP_SYST 156; BP_DIAS 62; BP_DIAS 84; BP_DIAS 95
[2016-12-02 14:00] VITALS: BP 138/85
--- NOTE | 2016-12-02 14:40 | IPNPDOC ---
Date Seen The patient was seen on 12/02/16. Progress Note Hospitalist Progress Note Subjective: Patient states she is eating without difficulty Objective: Physical Exam: Vitals: Vital Sign - Last 24 Hours 12/01/16 12/01/16 12/02/16 12/02/16 22:00 22:00 06:00 11:20 Temp 98.7 99.2 Pulse 76 81 71 74 78 102 105 112 Resp 16 14 B/P (MAP) 136/88 (104) 118/76 (90) 111/56 (74) 156/95 (115) 122/76 (91) 121/84 (96) 106/70 (82) 105/62 (76) Pulse Ox 98 95 O2 Delivery Room Air Room Air General: Awake, alert, no acute distress HEENT: Normocephalic, atraumatic, extraocular movements intact CV: Regular rate and rhythm Lungs: Clear to auscultation bilaterally Abd: Soft, nontender, nondistended Extremities: No edema Neuro: Alert and oriented 3, normal speech Psych: Normal Mood and affect Labs and Imaging: Laboratory Tests 12/02/16 06:34 Red Blood Count 3.78 L, Mean Corpuscular Volume 88.1, Mean Corpuscular Hemoglobin 30.3, Mean Corpuscular Hemoglobin Concent 34.3, Red Cell Distribution Width 12.4, Neutrophils (%) (Auto) 55.9, Lymphocytes (%) (Auto) 25.7, Monocytes (%) (Auto) 5.2 H, Eosinophils (%) (Auto) 11.0 H, Basophils (%) ( Auto) 0.5, Neutrophils # (Auto) 4.7, Lymphocytes # (Auto) 2.2, Monocytes # (Auto ) 0.4, Eosinophils # (Auto) 0.9 H, Basophils # (Auto) 0.0, Calcium Level 8.3 L, Aspartate Amino Transf (AST/SGOT) 12 L, Alanine Aminotransferase (ALT/SGPT) 17, Alkaline Phosphatase 84, Total Bilirubin 0.2, Total Protein 5.7 L, Albumin 2.8 L Assessment and Plan: 30-year-old female with diabetes mellitus type 1, orthostatic hypotension, anxiety, OCD, asthma, depression, gastroparesis who presented to the emergency department with intractable vomiting. 1. Gastroparesis flare: This has improved; EGD and HIDA scan were unremarkable. Continue Reglan, PPI, Carafate. 2. Orthostatic hypotension: The patient was seen and examined by Dr. Leiva, who has recommended midodrine and compression stockings. She is also still on Florinef. Echocardiogram showed a normal EF and normal diastolic function. Orthostats are slightly improved. 3. Depression, anxiety and OCD: Continue home Luvox, Seroquel, Klonopin. 4. Diabetes mellitus type 1: Patient usually takes Lantus 15 units every morning at home. Currently on Levemir 4 units in the morning as she has not been eating much. We will continue sliding scale insulin. 5. Asthma currently controlled. Continue as needed albuterol. 6. 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 Prior workup for adrenal insufficiency was unremarkable. PTH level and a.m. cortisol are also normal. Prior FSH and LH levels did not suggest any hypogonadism. 7. Leukocytosis: Initial UA showed 3+ leuk esterase, too numerous to count WBCs , and 1+ bacteria, but the urine culture appeared to be contaminated. She is afebrile, repeat UA is improved. WBC now WNL; I suspect this was reactive secondary to gastroparesis flare. 8. Hypomagnesemia: Replacing. Continue PO mag ox. DVT prophylaxis: Heparin Dispo: pending improvement in orthostatic hypotension, passing PT safety eval, and improvement in her mag VS, I&O, 24H, Fishbone Vital Signs/I&O Vital Signs Date Time Temp Pulse Resp B/P (MAP) Pulse Ox O2 Delivery O2 Flow Rate FiO2 12/02/16 11:20 74 156/95 (115) 102 121/84 (96) 112 105/62 (76) 12/02/16 06:00 99.2 14 95 Room Air I&O- Last 24 Hours up to 6 AM 12/02/16 05:59 Intake Total 1460 ml Output Total 1100 ml Balance 360 ml Laboratory Data 24H LABS Laboratory Tests 2 12/01/16 16:24: Bedside Glucose (Misc Panel) 208H 12/01/16 19:37: Bedside Glucose (Misc Panel) 114H 12/02/16 06:34: White Blood Count 8.4, Red Blood Count 3.78L, Hemoglobin 11.4L, Hematocrit 33.3L , Mean Corpuscular Volume 88.1, Mean Corpuscular Hemoglobin 30.3, Mean Corpuscular Hemoglobin Concent 34.3, Red Cell Distribution Width 12.4, Platelet Count 232, Neutrophils (%) (Auto) 55.9, Lymphocytes (%) (Auto) 25.7, Monocytes ( %) (Auto) 5.2H, Eosinophils (%) (Auto) 11.0H, Basophils (%) (Auto) 0.5, Neutrophils # (Auto) 4.7, Lymphocytes # (Auto) 2.2, Monocytes # (Auto) 0.4, Eosinophils # (Auto) 0.9H, Basophils # (Auto) 0.0, Large Unclassified Cells % 1.7, Large Unclassified Cells # 0.1, Anion Gap 8, Glomerular Filtration Rate > 60.0, Blood Urea Nitrogen 12#, Creatinine 0.59, Sodium Level 142, Potassium Level 3.5, Chloride Level 102, Carbon Dioxide Level 32, Calcium Level 8.3L, Aspartate Amino Transf (AST/SGOT) 12L, Alanine Aminotransferase (ALT/SGPT) 17, Alkaline Phosphatase 84, Total Bilirubin 0.2, Total Protein 5.7L, Albumin 2.8L, Magnesium Level 1.0L, Albumin/Globulin Ratio 0.97L 12/02/16 11:46: Bedside Glucose (Misc Panel) 245H CBC/BMP Laboratory Tests 12/02/16 06:34 Red Blood Count 3.78 L, Mean Corpuscular Volume 88.1, Mean Corpuscular Hemoglobin 30.3, Mean Corpuscular Hemoglobin Concent 34.3, Red Cell Distribution Width 12.4, Neutrophils (%) (Auto) 55.9, Lymphocytes (%) (Auto) 25.7, Monocytes (%) (Auto) 5.2 H, Eosinophils (%) (Auto) 11.0 H, Basophils (%) ( Auto) 0.5, Neutrophils # (Auto) 4.7, Lymphocytes # (Auto) 2.2, Monocytes # (Auto ) 0.4, Eosinophils # (Auto) 0.9 H, Basophils # (Auto) 0.0, Calcium Level 8.3 L, Aspartate Amino Transf (AST/SGOT) 12 L, Alanine Aminotransferase (ALT/SGPT) 17, Alkaline Phosphatase 84, Total Bilirubin 0.2, Total Protein 5.7 L, Albumin 2.8 L [facility] 11/23/16 Blood Culture - Final, Complete NO GROWTH AFTER 5 DAYS 11/23/16 Blood Culture - Final, Complete NO GROWTH AFTER 5 DAYS 11/23/16 Urine Culture - Final, Complete PEPE LANGFORD Dec 02, 2016 14:40
[2016-12-02 22:00] VITALS: BP 129/84
[2016-12-02] MEDS: PANTOPRAZOLE 40MG TAB (PROTONIX) PO SCH (22:08)
[2016-12-02] MEDS: QUEtiapine FUMARATE 50 MG TAB PO SCH (22:09)
[2016-12-02] MEDS: fluvoxaMINE MALEATE 50 MG TAB PO SCH (22:09)
[2016-12-03 06:00] VITALS: BP 108/67
[2016-12-03] MEDS: POTASSIUM CHLORIDE 10 MEQ SR TABLET PO SCH ×2 (09:00→21:00)
[2016-12-03] MEDS ORDERED: LEVEMIR (INSULIN DETEMIR) 1 UNITS/0.01ML SC SCH (09:00)
[2016-12-03 09:05] LABS: BASO % 0.3 % (0.0-1.0); EOS # 0.8 K/mm3 (0.0-0.50); EOS % 9.2 % (0.0-3.0); LARGE UNSTAINED CELL # 0.1 K/mm3 (0.0-0.4); LARGE UNSTAINED CELL % 1.6 % (0.0-4.0); LYMPH # 1.8 K/mm3 (1.5-4.5); LYMPH % 20.7 % (24.0-44.0); MEAN CORPUSCULAR HEMOGLOBIN 30.3 pg (27.0-33.0); MEAN CORPUSCULAR HGB CONC 34.1 g/dl (32.0-36.5); MEAN CORPUSCULAR VOLUME 88.9 fl (80.0-96.0); MONO # 0.5 K/mm3 (0.0-0.8); MONO % 5.7 % (0.0-5.0); NEUTROPHILS # 5.4 K/mm3 (1.8-7.7); NEUTROPHILS % 62.4 % (36.0-66.0); PLATELET COUNT, AUTOMATED 237 k/mm3 (150-450); RED CELL DISTRIBUTION WIDTH 12.3 % (11.5-14.5); WHITE BLOOD COUNT 8.7 K/mm3 (4.0-10.0)
[2016-12-03 09:16] LABS: ALBUMIN 2.8 GM/DL (3.2-5.2); ALBUMIN/GLOBULIN RATIO 0.82 (1.00-1.93); ALKALINE PHOSPHATASE 87 U/L (45-117); ALT/SGPT 19 U/L (12-78); ANION GAP 7 MEQ/L (8-16); AST/SGOT 11 U/L (15-37); BILIRUBIN,TOTAL 0.2 MG/DL (0.2-1.0); BLOOD UREA NITROGEN 14 MG/DL (7-18); CALCIUM LEVEL 7.5 MG/DL (8.5-10.1); CARBON DIOXIDE LEVEL 33 MEQ/L (21-32); CHLORIDE LEVEL 104 MEQ/L (98-107); CREATININE FOR GFR 0.65 MG/DL (0.55-1.02); GLOMERULAR FILTRATION RATE > 60.0 (>60); GLUCOSE, FASTING 246 MG/DL (70-105); POTASSIUM SERUM 3.5 MEQ/L (3.5-5.1); SODIUM LEVEL 144 MEQ/L (136-145); TOTAL PROTEIN 6.2 GM/DL (6.4-8.2)
[2016-12-03] MEDS: SUCRALFATE 1 GM TAB PO SCH ×5 (09:24→21:24)
[2016-12-03] MEDS: MIDODRINE 2.5 MG TAB PO SCH ×2 (09:24→17:06)
[2016-12-03] MEDS: FLUDROCORTISONE ACETATE 0.1 MG TAB PO SCH (09:24)
[2016-12-03] MEDS: METOCLOPRAMIDE 10 MG TAB PO SCH ×4 (09:24→21:24)
[2016-12-03] MEDS: HumaLOG INSULIN (NovoLOG) PER UNIT SC SCH ×4 (09:25→21:00)
[2016-12-03] MEDS: MAGNESIUM OXIDE 400 MG TAB (MAG-OX) PO SCH ×2 (09:25→21:24)
[2016-12-03] MEDS: MAG SULF 1GM/100ML (MAG RUN) 1 GM in APPROPRIATE DILUENT 1 EA IV SCH ×2 (12:35→13:35)
--- NOTE | 2016-12-03 13:13 | IPNPDOC ---
Date Seen The patient was seen on 12/03/16. Progress Note Hospitalist Progress Note Subjective: Patient states she is eating without difficulty; she denies dizziness or light headedness when standing Objective: Physical Exam: Vitals: Vital Sign - Last 24 Hours 12/02/16 12/02/16 12/03/16 14:00 22:00 06:00 Temp 98.9 99.4 98.0 Pulse 70 75 77 Resp 18 14 14 B/P (MAP) 138/85 (102) 129/84 (99) 108/67 (81) Pulse Ox 93 97 95 O2 Delivery Room Air Room Air Room Air General: Awake, alert, no acute distress HEENT: Normocephalic, atraumatic, extraocular movements intact CV: Regular rate and rhythm Lungs: Clear to auscultation bilaterally Abd: Soft, nontender, nondistended Extremities: No edema Neuro: Alert and oriented 3, normal speech Psych: Normal Mood and affect Labs and Imaging: Laboratory Tests 12/03/16 08:43 Red Blood Count 3.71 L, Mean Corpuscular Volume 88.9, Mean Corpuscular Hemoglobin 30.3, Mean Corpuscular Hemoglobin Concent 34.1, Red Cell Distribution Width 12.3, Neutrophils (%) (Auto) 62.4, Lymphocytes (%) (Auto) 20.7 L, Monocytes (%) (Auto) 5.7 H, Eosinophils (%) (Auto) 9.2 H, Basophils (%) (Auto) 0.3, Neutrophils # (Auto) 5.4, Lymphocytes # (Auto) 1.8, Monocytes # ( Auto) 0.5, Eosinophils # (Auto) 0.8 H, Basophils # (Auto) 0.0, Calcium Level 7.5 L, Aspartate Amino Transf (AST/SGOT) 11 L, Alanine Aminotransferase (ALT/ SGPT) 19, Alkaline Phosphatase 87, Total Bilirubin 0.2, Total Protein 6.2 L, Albumin 2.8 L Assessment and Plan: 30-year-old female with diabetes mellitus type 1, orthostatic hypotension, anxiety, OCD, asthma, depression, gastroparesis who presented to the emergency department with intractable vomiting. 1. Gastroparesis flare: This has resolved; EGD and HIDA scan were unremarkable. Continue Reglan, PPI, Carafate. 2. Orthostatic hypotension: The patient was seen and examined by Dr. Leiva, who has recommended midodrine and compression stockings. She is also still on Florinef. Echocardiogram showed a normal EF and normal diastolic function. Orthostats are slightly improved. This has been a long standing issue for the patient prior to admission. At this time, the patient is not symptomatic with standing, so I think she is stable to continue following with her outpatient physicians for further management. 3. Depression, anxiety and OCD: Continue home Luvox, Seroquel, Klonopin. 4. Diabetes mellitus type 1: Patient usually takes Lantus 15 units every morning at home. Currently on Levemir 4 units in the morning as she had not been eating much. Now that she is eating more, we will increase to 10u of levemir. We will continue sliding scale insulin. 5. Asthma currently controlled. Continue as needed albuterol. 6. 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 Prior workup for adrenal insufficiency was unremarkable. PTH level and a.m. cortisol are also normal. Prior FSH and LH levels did not suggest any hypogonadism. 7. Leukocytosis: Initial UA showed 3+ leuk esterase, too numerous to count WBCs , and 1+ bacteria, but the urine culture appeared to be contaminated. She is afebrile, repeat UA is improved. WBC now WNL; I suspect this was reactive secondary to gastroparesis flare. 8. Hypomagnesemia: Replacing. Continues to be around 1.0. Continue PO mag ox. DVT prophylaxis: Heparin Dispo: pending improvement in her mag VS, I&O, 24H, [facility] Vital Signs/I&O Vital Signs Date Time Temp Pulse Resp B/P (MAP) Pulse Ox O2 Delivery O2 Flow Rate FiO2 12/03/16 06:00 98.0 77 14 108/67 (81) 95 Room Air I&O- Last 24 Hours up to 6 AM 12/03/16 06:00 Intake Total 1080 ml Output Total 200 ml Balance 880 ml Laboratory Data 24H LABS Laboratory Tests 2 12/02/16 16:39: Bedside Glucose (Misc Panel) 201H 12/02/16 21:12: Bedside Glucose (Misc Panel) 157H 12/03/16 08:43: White Blood Count 8.7, Red Blood Count 3.71L, Hemoglobin 11.2L, Hematocrit 32.9L , Mean Corpuscular Volume 88.9, Mean Corpuscular Hemoglobin 30.3, Mean Corpuscular Hemoglobin Concent 34.1, Red Cell Distribution Width 12.3, Platelet Count 237, Neutrophils (%) (Auto) 62.4, Lymphocytes (%) (Auto) 20.7L, Monocytes (%) (Auto) 5.7H, Eosinophils (%) (Auto) 9.2H, Basophils (%) (Auto) 0.3, Neutrophils # (Auto) 5.4, Lymphocytes # (Auto) 1.8, Monocytes # (Auto) 0.5, Eosinophils # (Auto) 0.8H, Basophils # (Auto) 0.0, Large Unclassified Cells % 1.6, Large Unclassified Cells # 0.1, Anion Gap 7L, Glomerular Filtration Rate > 60.0, Blood Urea Nitrogen 14, Creatinine 0.65, Sodium Level 144, Potassium Level 3.5, Chloride Level 104, Carbon Dioxide Level 33H, Calcium Level 7.5L, Aspartate Amino Transf (AST/SGOT) 11L, Alanine Aminotransferase (ALT/SGPT) 19, Alkaline Phosphatase 87, Total Bilirubin 0.2, Total Protein 6.2L, Albumin 2.8L, Magnesium Level 1.0L, Albumin/Globulin Ratio 0.82L 12/03/16 11:33: Bedside Glucose (Misc Panel) 236H CBC/BMP Laboratory Tests 12/03/16 08:43 Red Blood Count 3.71 L, Mean Corpuscular Volume 88.9, Mean Corpuscular Hemoglobin 30.3, Mean Corpuscular Hemoglobin Concent 34.1, Red Cell Distribution Width 12.3, Neutrophils (%) (Auto) 62.4, Lymphocytes (%) (Auto) 20.7 L, Monocytes (%) (Auto) 5.7 H, Eosinophils (%) (Auto) 9.2 H, Basophils (%) (Auto) 0.3, Neutrophils # (Auto) 5.4, Lymphocytes # (Auto) 1.8, Monocytes # ( Auto) 0.5, Eosinophils # (Auto) 0.8 H, Basophils # (Auto) 0.0, Calcium Level 7.5 L, Aspartate Amino Transf (AST/SGOT) 11 L, Alanine Aminotransferase (ALT/ SGPT) 19, Alkaline Phosphatase 87, Total Bilirubin 0.2, Total Protein 6.2 L, Albumin 2.8 L Microbiology Microbiology 11/23/16 Blood Culture - Final, Complete NO GROWTH AFTER 5 DAYS 11/23/16 Blood Culture - Final, Complete NO GROWTH AFTER 5 DAYS 11/23/16 Urine Culture - Final, Complete PEPE LANGFORD Dec 03, 2016 13:13
[2016-12-03 14:00] VITALS: BP 122/72
[2016-12-03] MEDS: fluvoxaMINE MALEATE 50 MG TAB PO SCH (21:24)
[2016-12-03] MEDS: QUEtiapine FUMARATE 50 MG TAB PO SCH (21:24)
[2016-12-03] MEDS: PANTOPRAZOLE 40MG TAB (PROTONIX) PO SCH (21:24)
[2016-12-03 22:00] VITALS: BP 140/79
[2016-12-04 06:00] VITALS: BP 117/64
[2016-12-04 07:36] LABS: BASO % 0.4 % (0.0-1.0); EOS # 0.8 K/mm3 (0.0-0.50); EOS % 10.2 % (0.0-3.0); LARGE UNSTAINED CELL # 0.1 K/mm3 (0.0-0.4); LARGE UNSTAINED CELL % 1.6 % (0.0-4.0); LYMPH # 2.1 K/mm3 (1.5-4.5); LYMPH % 27.6 % (24.0-44.0); MEAN CORPUSCULAR HEMOGLOBIN 30.9 pg (27.0-33.0); MEAN CORPUSCULAR HGB CONC 34.5 g/dl (32.0-36.5); MEAN CORPUSCULAR VOLUME 89.5 fl (80.0-96.0); MONO # 0.4 K/mm3 (0.0-0.8); MONO % 5.2 % (0.0-5.0); NEUTROPHILS # 4.2 K/mm3 (1.8-7.7); NEUTROPHILS % 54.9 % (36.0-66.0); PLATELET COUNT, AUTOMATED 213 k/mm3 (150-450); RED CELL DISTRIBUTION WIDTH 12.4 % (11.5-14.5); WHITE BLOOD COUNT 7.7 K/mm3 (4.0-10.0)
[2016-12-04 07:40] LABS: ALBUMIN 2.6 GM/DL (3.2-5.2); ALBUMIN/GLOBULIN RATIO 0.76 (1.00-1.93); ALKALINE PHOSPHATASE 87 U/L (45-117); ALT/SGPT 19 U/L (12-78); ANION GAP 7 MEQ/L (8-16); AST/SGOT 14 U/L (15-37); BILIRUBIN,TOTAL < 0.1 MG/DL (0.2-1.0); BLOOD UREA NITROGEN 11 MG/DL (7-18); CALCIUM LEVEL 7.9 MG/DL (8.5-10.1); CARBON DIOXIDE LEVEL 33 MEQ/L (21-32); CHLORIDE LEVEL 104 MEQ/L (98-107); CREATININE FOR GFR 0.61 MG/DL (0.55-1.02); GLOMERULAR FILTRATION RATE > 60.0 (>60); GLUCOSE, FASTING 224 MG/DL (70-105); MAGNESIUM LEVEL 1.1 MG/DL (1.8-2.4); POTASSIUM SERUM 3.2 MEQ/L (3.5-5.1); SODIUM LEVEL 144 MEQ/L (136-145)
[2016-12-04] MEDS: POTASSIUM CHLORIDE 10 MEQ SR TABLET PO SCH ×4 (08:00→20:36)
[2016-12-04] MEDS: MAG SULF 1GM/100ML (MAG RUN) 1 GM in APPROPRIATE DILUENT 1 EA IV SCH ×4 (09:15→20:00)
[2016-12-04] MEDS: MIDODRINE 2.5 MG TAB PO SCH ×2 (10:37→17:52)
[2016-12-04] MEDS: FLUDROCORTISONE ACETATE 0.1 MG TAB PO SCH (10:37)
[2016-12-04] MEDS: MAGNESIUM OXIDE 400 MG TAB (MAG-OX) PO SCH ×2 (10:37→20:58)
[2016-12-04] MEDS: LEVEMIR (INSULIN DETEMIR) 1 UNITS/0.01ML SC SCH (10:37)
[2016-12-04] MEDS: HumaLOG INSULIN (NovoLOG) PER UNIT SC SCH ×4 (10:37→20:37)
[2016-12-04] MEDS: METOCLOPRAMIDE 10 MG TAB PO SCH ×4 (10:37→21:00)
[2016-12-04] MEDS: SUCRALFATE 1 GM TAB PO SCH ×4 (10:37→20:59)
[2016-12-04] MEDS: KCL 10MEQ IN 100ML SWI (KRUN) 10 MEQ in APPROPRIATE DILUENT 1 EA IV SCH ×6 (13:50→23:44)
[2016-12-04 14:00] VITALS: BP 119/69
--- NOTE | 2016-12-04 16:32 | IPNPDOC ---
Date Seen The patient was seen on 12/04/16. Progress Note Hospitalist Progress Note Subjective: Patient states she is eating without difficulty; she denies dizziness or light headedness when standing; she feels well Objective: Physical Exam: Vitals: Vital Sign - Last 24 Hours 12/03/16 12/04/16 22:00 06:00 Temp 99.5 98.6 Pulse 85 72 Resp 18 18 B/P (MAP) 140/79 (99) 117/64 (81) Pulse Ox 96 95 O2 Delivery Room Air Room Air General: Awake, alert, no acute distress HEENT: Normocephalic, atraumatic, extraocular movements intact CV: Regular rate and rhythm Lungs: Clear to auscultation bilaterally Abd: Soft, nontender, nondistended Extremities: No edema Neuro: Alert and oriented 3, normal speech Psych: Normal Mood and affect Labs and Imaging: Laboratory Tests 12/04/16 07:04 Red Blood Count 3.62 L, Mean Corpuscular Volume 89.5, Mean Corpuscular Hemoglobin 30.9, Mean Corpuscular Hemoglobin Concent 34.5, Red Cell Distribution Width 12.4, Neutrophils (%) (Auto) 54.9, Lymphocytes (%) (Auto) 27.6, Monocytes (%) (Auto) 5.2 H, Eosinophils (%) (Auto) 10.2 H, Basophils (%) ( Auto) 0.4, Neutrophils # (Auto) 4.2, Lymphocytes # (Auto) 2.1, Monocytes # (Auto ) 0.4, Eosinophils # (Auto) 0.8 H, Basophils # (Auto) 0.0, Calcium Level 7.9 L, Aspartate Amino Transf (AST/SGOT) 14 L, Alanine Aminotransferase (ALT/SGPT) 19, Alkaline Phosphatase 87, Total Bilirubin < 0.1 #L, Total Protein 6.0 L, Albumin 2.6 L Assessment and Plan: 30-year-old female with diabetes mellitus type 1, orthostatic hypotension, anxiety, OCD, asthma, depression, gastroparesis who presented to the emergency department with intractable vomiting. 1. Gastroparesis flare: This has resolved; EGD and HIDA scan were unremarkable. Continue Reglan, Carafate. Stopping PPI given persistent hypomagnesemia. 2. Orthostatic hypotension: The patient was seen and examined by Dr. Leiva, who has recommended midodrine and compression stockings. She is also still on Florinef. Echocardiogram showed a normal EF and normal diastolic function. Orthostats are slightly improved. This has been a long standing issue for the patient prior to admission. At this time, the patient is not symptomatic with standing, so I think she is stable to continue following with her outpatient physicians for further management. 3. Depression, anxiety and OCD: Continue home Luvox, Seroquel, Klonopin. 4. Diabetes mellitus type 1: Patient usually takes Lantus 15 units every morning at home. Currently on Levemir 10units in the morning as she had not been eating much. Now that she is eating more, we will increase to 15u of levemir. We will continue sliding scale insulin. 5. Asthma currently controlled. Continue as needed albuterol. 6. 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 Prior workup for adrenal insufficiency was unremarkable. PTH level and a.m. cortisol are also normal. Prior FSH and LH levels did not suggest any hypogonadism. 7. Leukocytosis: Initial UA showed 3+ leuk esterase, too numerous to count WBCs , and 1+ bacteria, but the urine culture appeared to be contaminated. She is afebrile, repeat UA is improved. WBC now WNL; I suspect this was reactive secondary to gastroparesis flare. 8. Hypomagnesemia: Replacing IV. Continues to be around 1.0. Continue PO mag ox. Stopping PPI. DVT prophylaxis: Heparin Dispo: pending improvement in her mag VS, I&O, [facility] Vital Signs/I&O Vital Signs Date Time Temp Pulse Resp B/P (MAP) Pulse Ox O2 Delivery O2 Flow Rate FiO2 12/04/16 06:00 98.6 72 18 117/64 (81) 95 Room Air I&O- Last 24 Hours up to 6 AM 12/04/16 06:00 Intake Total 1680 ml Output Total 400 ml Balance 1280 ml Laboratory Data 24H LABS Laboratory Tests 2 12/03/16 16:48: Bedside Glucose (Misc Panel) 109H 12/03/16 20:18: Bedside Glucose (Misc Panel) 207H 12/04/16 07:04: White Blood Count 7.7, Red Blood Count 3.62L, Hemoglobin 11.2L, Hematocrit 32.4L , Mean Corpuscular Volume 89.5, Mean Corpuscular Hemoglobin 30.9, Mean Corpuscular Hemoglobin Concent 34.5, Red Cell Distribution Width 12.4, Platelet Count 213, Neutrophils (%) (Auto) 54.9, Lymphocytes (%) (Auto) 27.6, Monocytes ( %) (Auto) 5.2H, Eosinophils (%) (Auto) 10.2H, Basophils (%) (Auto) 0.4, Neutrophils # (Auto) 4.2, Lymphocytes # (Auto) 2.1, Monocytes # (Auto) 0.4, Eosinophils # (Auto) 0.8H, Basophils # (Auto) 0.0, Large Unclassified Cells % 1.6, Large Unclassified Cells # 0.1, Anion Gap 7L, Glomerular Filtration Rate > 60.0, Blood Urea Nitrogen 11, Creatinine 0.61, Sodium Level 144, Potassium Level 3.2L, Chloride Level 104, Carbon Dioxide Level 33H, Calcium Level 7.9L, Aspartate Amino Transf (AST/SGOT) 14L, Alanine Aminotransferase (ALT/SGPT) 19, Alkaline Phosphatase 87, Total Bilirubin < 0.1#L, Total Protein 6.0L, Albumin 2.6L, Magnesium Level 1.1L, Albumin/Globulin Ratio 0.76L 12/04/16 12:05: Bedside Glucose (Misc Panel) 116H CBC/BMP Laboratory Tests 12/04/16 07:04 Red Blood Count 3.62 L, Mean Corpuscular Volume 89.5, Mean Corpuscular Hemoglobin 30.9, Mean Corpuscular Hemoglobin Concent 34.5, Red Cell Distribution Width 12.4, Neutrophils (%) (Auto) 54.9, Lymphocytes (%) (Auto) 27.6, Monocytes (%) (Auto) 5.2 H, Eosinophils (%) (Auto) 10.2 H, Basophils (%) ( Auto) 0.4, Neutrophils # (Auto) 4.2, Lymphocytes # (Auto) 2.1, Monocytes # (Auto ) 0.4, Eosinophils # (Auto) 0.8 H, Basophils # (Auto) 0.0, Calcium Level 7.9 L, Aspartate Amino Transf (AST/SGOT) 14 L, Alanine Aminotransferase (ALT/SGPT) 19, Alkaline Phosphatase 87, Total Bilirubin < 0.1 #L, Total Protein 6.0 L, Albumin 2.6 L PEPE LANGFORD Dec 04, 2016 16:32
[2016-12-04] MEDS: fluvoxaMINE MALEATE 50 MG TAB PO SCH (20:59)
[2016-12-04] MEDS: QUEtiapine FUMARATE 50 MG TAB PO SCH (20:59)
[2016-12-04 22:00] VITALS: BP 127/73
[2016-12-05 06:00] VITALS: BP 123/76
[2016-12-05 06:55] LABS: BASO % 0.4 % (0.0-1.0); EOS # 0.8 K/mm3 (0.0-0.50); EOS % 10.3 % (0.0-3.0); LARGE UNSTAINED CELL # 0.1 K/mm3 (0.0-0.4); LARGE UNSTAINED CELL % 1.5 % (0.0-4.0); LYMPH # 2.5 K/mm3 (1.5-4.5); LYMPH % 31.8 % (24.0-44.0); MEAN CORPUSCULAR HGB CONC 35.5 g/dl (32.0-36.5); MEAN CORPUSCULAR VOLUME 87.2 fl (80.0-96.0); MONO # 0.5 K/mm3 (0.0-0.8); MONO % 5.9 % (0.0-5.0); NEUTROPHILS # 3.9 K/mm3 (1.8-7.7); NEUTROPHILS % 50.1 % (36.0-66.0); PLATELET COUNT, AUTOMATED 224 k/mm3 (150-450); RED CELL DISTRIBUTION WIDTH 12.3 % (11.5-14.5); WHITE BLOOD COUNT 7.8 K/mm3 (4.0-10.0)
[2016-12-05 07:19] LABS: ALBUMIN 2.5 GM/DL (3.2-5.2); ALBUMIN/GLOBULIN RATIO 0.76 (1.00-1.93); ALKALINE PHOSPHATASE 82 U/L (45-117); ALT/SGPT 20 U/L (12-78); ANION GAP 8 MEQ/L (8-16); AST/SGOT 14 U/L (15-37); BILIRUBIN,TOTAL 0.2 MG/DL (0.2-1.0); BLOOD UREA NITROGEN 7 MG/DL (7-18); CALCIUM LEVEL 7.9 MG/DL (8.5-10.1); CARBON DIOXIDE LEVEL 33 MEQ/L (21-32); CHLORIDE LEVEL 104 MEQ/L (98-107); GLOMERULAR FILTRATION RATE > 60.0 (>60); GLUCOSE, FASTING 170 MG/DL (70-105); MAGNESIUM LEVEL 1.5 MG/DL (1.8-2.4); POTASSIUM SERUM 3.4 MEQ/L (3.5-5.1); SODIUM LEVEL 145 MEQ/L (136-145); TOTAL PROTEIN 5.8 GM/DL (6.4-8.2)
[2016-12-05] MEDS: HumaLOG INSULIN (NovoLOG) PER UNIT SC SCH ×4 (07:30→20:09)
[2016-12-05] MEDS: SUCRALFATE 1 GM TAB PO SCH ×4 (08:32→20:40)
[2016-12-05] MEDS: METOCLOPRAMIDE 10 MG TAB PO SCH ×4 (08:32→20:39)
[2016-12-05] MEDS: FLUDROCORTISONE ACETATE 0.1 MG TAB PO SCH (08:32)
[2016-12-05] MEDS: MIDODRINE 2.5 MG TAB PO SCH ×2 (08:33→16:52)
[2016-12-05] MEDS: MAGNESIUM OXIDE 400 MG TAB (MAG-OX) PO SCH ×2 (08:33→20:40)
[2016-12-05] MEDS: LEVEMIR (INSULIN DETEMIR) 1 UNITS/0.01ML SC SCH (08:35)
[2016-12-05] MEDS: MAG SULF 1GM/100ML (MAG RUN) 1 GM in APPROPRIATE DILUENT 1 EA IV SCH ×4 (08:37→19:27)
[2016-12-05] MEDS: KCL 10MEQ IN 100ML SWI (KRUN) 10 MEQ in APPROPRIATE DILUENT 1 EA IV SCH ×6 (11:00→16:51)
--- NOTE | 2016-12-05 11:47 | IPNPDOC ---
Date Seen The patient was seen on 12/05/16. Progress Note Hospitalist Progress Note Subjective: Patient states she is eating without difficulty; she denies dizziness or light headedness when standing; she feels well Objective: Physical Exam: Vitals: Vital Sign - Last 24 Hours 12/04/16 12/04/16 12/05/16 14:00 22:00 06:00 Temp 98.8 99.6 98.8 Pulse 111 84 80 Resp 20 18 18 B/P (MAP) 119/69 (86) 127/73 (91) 123/76 (92) Pulse Ox 96 95 97 O2 Delivery Room Air Room Air Room Air General: Awake, alert, no acute distress HEENT: Normocephalic, atraumatic, extraocular movements intact CV: Regular rate and rhythm Lungs: Clear to auscultation bilaterally Abd: Soft, nontender, nondistended Extremities: No edema Neuro: Alert and oriented 3, normal speech Psych: Normal Mood and affect Labs and Imaging: Laboratory Tests 12/05/16 06:41 Red Blood Count 3.67 L, Mean Corpuscular Volume 87.2, Mean Corpuscular Hemoglobin 31.0, Mean Corpuscular Hemoglobin Concent 35.5, Red Cell Distribution Width 12.3, Neutrophils (%) (Auto) 50.1, Lymphocytes (%) (Auto) 31.8, Monocytes (%) (Auto) 5.9 H, Eosinophils (%) (Auto) 10.3 H, Basophils (%) ( Auto) 0.4, Neutrophils # (Auto) 3.9, Lymphocytes # (Auto) 2.5, Monocytes # (Auto ) 0.5, Eosinophils # (Auto) 0.8 H, Basophils # (Auto) 0.0, Calcium Level 7.9 L, Aspartate Amino Transf (AST/SGOT) 14 L, Alanine Aminotransferase (ALT/SGPT) 20, Alkaline Phosphatase 82, Total Bilirubin 0.2 #, Total Protein 5.8 L, Albumin 2.5 L Assessment and Plan: 30-year-old female with diabetes mellitus type 1, orthostatic hypotension, anxiety, OCD, asthma, depression, gastroparesis who presented to the emergency department with intractable vomiting. 1. Gastroparesis flare: This has resolved; EGD and HIDA scan were unremarkable. Continue Reglan, Carafate. Stopped PPI given persistent hypomagnesemia. 2. Orthostatic hypotension: The patient was seen and examined by Dr. Leiva, who has recommended midodrine and compression stockings. She is also still on Florinef. Echocardiogram showed a normal EF and normal diastolic function. Orthostats are slightly improved. This has been a long standing issue for the patient prior to admission. At this time, the patient is not symptomatic with standing, so I think she is stable to continue following with her outpatient physicians for further management. 3. Depression, anxiety and OCD: Continue home Luvox, Seroquel, Klonopin. 4. Diabetes mellitus type 1: Continue home Lantus 15 units every morning at home. We will continue sliding scale insulin. 5. Asthma currently controlled. Continue as needed albuterol. 6. 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 Prior workup for adrenal insufficiency was unremarkable. PTH level and a.m. cortisol are also normal. Prior FSH and LH levels did not suggest any hypogonadism. 7. Leukocytosis: Initial UA showed 3+ leuk esterase, too numerous to count WBCs , and 1+ bacteria, but the urine culture appeared to be contaminated. She is afebrile, repeat UA is improved. WBC now WNL; I suspect this was reactive secondary to gastroparesis flare. 8. Hypomagnesemia: Replacing IV again. Continues to be 1.5 despite 4gm IV yesterday. Continue PO mag ox. Stopped PPI. 9. Hypokalemia: Patient has refused all except one dose of the scheduled oral KCl that was ordered for her. She refuses oral KCl when it is ordered for replacement. Will replace with Kruns. DVT prophylaxis: Heparin Dispo: pending improvement in her mag and K, hopefully tomorrow VS, I&O, 24H, [facility] Vital Signs/I&O Vital Signs Date Time Temp Pulse Resp B/P (MAP) Pulse Ox O2 Delivery O2 Flow Rate FiO2 12/05/16 06:00 98.8 80 18 123/76 (92) 97 Room Air I&O- Last 24 Hours up to 6 AM 12/05/16 06:00 Intake Total 2620 ml Output Total 400 ml Balance 2220 ml Laboratory Data 24H LABS Laboratory Tests 2 12/04/16 12:05: Bedside Glucose (Misc Panel) 116H 12/04/16 16:56: Bedside Glucose (Misc Panel) 208H 12/04/16 20:30: Bedside Glucose (Misc Panel) 154H 12/04/16 21:15: Magnesium Level 1.9 12/05/16 06:41: White Blood Count 7.8, Red Blood Count 3.67L, Hemoglobin 11.4L, Hematocrit 32.0L , Mean Corpuscular Volume 87.2, Mean Corpuscular Hemoglobin 31.0, Mean Corpuscular Hemoglobin Concent 35.5, Red Cell Distribution Width 12.3, Platelet Count 224, Neutrophils (%) (Auto) 50.1, Lymphocytes (%) (Auto) 31.8, Monocytes ( %) (Auto) 5.9H, Eosinophils (%) (Auto) 10.3H, Basophils (%) (Auto) 0.4, Neutrophils # (Auto) 3.9, Lymphocytes # (Auto) 2.5, Monocytes # (Auto) 0.5, Eosinophils # (Auto) 0.8H, Basophils # (Auto) 0.0, Large Unclassified Cells % 1.5, Large Unclassified Cells # 0.1, Anion Gap 8, Glomerular Filtration Rate > 60.0, Blood Urea Nitrogen 7, Creatinine 0.60, Sodium Level 145, Potassium Level 3.4L, Chloride Level 104, Carbon Dioxide Level 33H, Calcium Level 7.9L, Aspartate Amino Transf (AST/SGOT) 14L, Alanine Aminotransferase (ALT/SGPT) 20, Alkaline Phosphatase 82, Total Bilirubin 0.2#, Total Protein 5.8L, Albumin 2.5L , Magnesium Level 1.5L, Albumin/Globulin Ratio 0.76L 12/05/16 11:12: Bedside Glucose (Misc Panel) 124H CBC/BMP Laboratory Tests 12/05/16 06:41 Red Blood Count 3.67 L, Mean Corpuscular Volume 87.2, Mean Corpuscular Hemoglobin 31.0, Mean Corpuscular Hemoglobin Concent 35.5, Red Cell Distribution Width 12.3, Neutrophils (%) (Auto) 50.1, Lymphocytes (%) (Auto) 31.8, Monocytes (%) (Auto) 5.9 H, Eosinophils (%) (Auto) 10.3 H, Basophils (%) ( Auto) 0.4, Neutrophils # (Auto) 3.9, Lymphocytes # (Auto) 2.5, Monocytes # (Auto ) 0.5, Eosinophils # (Auto) 0.8 H, Basophils # (Auto) 0.0, Calcium Level 7.9 L, Aspartate Amino Transf (AST/SGOT) 14 L, Alanine Aminotransferase (ALT/SGPT) 20, Alkaline Phosphatase 82, Total Bilirubin 0.2 #, Total Protein 5.8 L, Albumin 2.5 L PEPE LANGFORD Dec 05, 2016 11:47
[2016-12-05 14:00] VITALS: BP 110/59
--- NOTE | 2016-12-05 17:40 | ECGEPIP ---
Stationary ECG Study [facility] Test Date: 2016-12-05 Pat Name: JORDIN ROTHMAN Department: Room: [place] [address] Gender: F Thread Singer: RONNIE : 1985 Requested By: PEPE Mata Order Number: [id number] Reading MD: Vitor Ryan Measurements Intervals Bandy Rate: 85 P: 39 SD: 130 QRS: 35 QRSD: 90 T: 33 QT: 368 QTc: 440 Interpretive Statements SINUS RHYTHM Similar to tracing done 11-27-16 Electronically Signed On 12-05-2016 17:39:49 EDT by Vitor Ryan
[2016-12-05] MEDS: fluvoxaMINE MALEATE 50 MG TAB PO SCH (20:39)
[2016-12-05] MEDS: QUEtiapine FUMARATE 50 MG TAB PO SCH (20:40)
[2016-12-05] MEDS ORDERED: MAG SULF 1GM/100ML (MAG RUN) 1 GM in APPROPRIATE DILUENT 1 EA IV ONE (20:45)
[2016-12-05 22:00] VITALS: BP 143/81
[2016-12-06 06:00] VITALS: BP 113/52
[2016-12-06 06:54] LABS: BASO # 0.1 K/mm3 (0.0-0.2); BASO % 0.8 % (0.0-1.0); EOS # 0.9 K/mm3 (0.0-0.50); LARGE UNSTAINED CELL # 0.1 K/mm3 (0.0-0.4); LARGE UNSTAINED CELL % 1.7 % (0.0-4.0); LYMPH # 2.5 K/mm3 (1.5-4.5); LYMPH % 32.1 % (24.0-44.0); MEAN CORPUSCULAR HEMOGLOBIN 29.8 pg (27.0-33.0); MEAN CORPUSCULAR HGB CONC 33.4 g/dl (32.0-36.5); MEAN CORPUSCULAR VOLUME 89.3 fl (80.0-96.0); MONO # 0.5 K/mm3 (0.0-0.8); MONO % 6.9 % (0.0-5.0); NEUTROPHILS # 3.5 K/mm3 (1.8-7.7); NEUTROPHILS % 46.5 % (36.0-66.0); PLATELET COUNT, AUTOMATED 219 k/mm3 (150-450); RED CELL DISTRIBUTION WIDTH 12.7 % (11.5-14.5); WHITE BLOOD COUNT 7.5 K/mm3 (4.0-10.0)
[2016-12-06 07:21] LABS: ALBUMIN 2.7 GM/DL (3.2-5.2); ALBUMIN/GLOBULIN RATIO 0.77 (1.00-1.93); ALKALINE PHOSPHATASE 79 U/L (45-117); ALT/SGPT 25 U/L (12-78); ANION GAP 5 MEQ/L (8-16); AST/SGOT 15 U/L (15-37); BILIRUBIN,TOTAL 0.2 MG/DL (0.2-1.0); BLOOD UREA NITROGEN 10 MG/DL (7-18); CALCIUM LEVEL 8.4 MG/DL (8.5-10.1); CARBON DIOXIDE LEVEL 34 MEQ/L (21-32); CHLORIDE LEVEL 103 MEQ/L (98-107); GLOMERULAR FILTRATION RATE > 60.0 (>60); GLUCOSE, FASTING 170 MG/DL (70-105); MAGNESIUM LEVEL 1.5 MG/DL (1.8-2.4); POTASSIUM SERUM 3.2 MEQ/L (3.5-5.1); SODIUM LEVEL 142 MEQ/L (136-145); TOTAL PROTEIN 6.2 GM/DL (6.4-8.2)
[2016-12-06] MEDS: MAGNESIUM OXIDE 400 MG TAB (MAG-OX) PO SCH (08:01)
[2016-12-06] MEDS: SUCRALFATE 1 GM TAB PO SCH ×3 (08:01→17:24)
[2016-12-06] MEDS: MIDODRINE 2.5 MG TAB PO SCH ×2 (08:01→17:24)
[2016-12-06] MEDS: fluvoxaMINE MALEATE 50 MG TAB PO SCH (08:01)
[2016-12-06] MEDS: METOCLOPRAMIDE 10 MG TAB PO SCH ×3 (08:01→17:24)
[2016-12-06] MEDS: HumaLOG INSULIN (NovoLOG) PER UNIT SC SCH ×3 (08:02→17:25)
[2016-12-06] MEDS: LEVEMIR (INSULIN DETEMIR) 1 UNITS/0.01ML SC SCH (08:03)
[2016-12-06] MEDS: FLUDROCORTISONE ACETATE 0.1 MG TAB PO SCH (08:09)
[2016-12-06] MEDS ORDERED: POTASSIUM CHLORIDE 10% LIQ 20 MEQ/15 ML UDC PO SCH (09:00)
[2016-12-06] MEDS: MAG SULF 1GM/100ML (MAG RUN) 1 GM in APPROPRIATE DILUENT 1 EA IV SCH ×4 (09:53→14:11)
[2016-12-06] MEDS ORDERED: KCL 10MEQ IN 100ML SWI (KRUN) 10 MEQ in APPROPRIATE DILUENT 1 EA IV SCH ×2 (10:00)
[2016-12-06] MEDS: POTASSIUM CHLORIDE 10 MEQ SR TABLET PO SCH ×2 (11:11→14:13)
[2016-12-06] MEDS ORDERED: SUCR1TA PO (13:27)
[2016-12-06] MEDS ORDERED: MAG400TA PO (13:27)
[2016-12-06] MEDS ORDERED: MIDO2.5T PO (13:27)
[2016-12-06] MEDS ORDERED: METO10TA2 PO (13:27)
[2016-12-06] MEDS ORDERED: FLUD0.1T PO (13:27)
[2016-12-06 14:00] VITALS: BP 131/77
[2016-12-06] MEDS ORDERED: MAG SULF 1GM/100ML (MAG RUN) 1 GM in APPROPRIATE DILUENT 1 EA IV SCH (14:00)
[2016-12-06 16:45] LABS: MAGNESIUM LEVEL 2.2 MG/DL (1.8-2.4); POTASSIUM SERUM 3.7 MEQ/L (3.5-5.1)
--- NOTE | 2016-12-07 14:19 | DS.PDOC ---
Discharge Summary General Date of Admission 11/23/2016 Date of Discharge 12/06/2016 Discharge Summary DISCHARGE SUMMARY DATE OF ADMISSION: 11/23/2016 DATE OF DISCHARGE: 12/06/2016 PRIMARY CARE PHYSICIAN: Dr. Wilson DISCHARGE DIAGNOS(E)S: Gastroparesis flare Orthostatic hypotension Hypomagnesemia Hypokalemia HPI & HOSPITAL COURSE: 30-year-old female with diabetes mellitus type 1, orthostatic hypotension, anxiety, OCD, asthma, depression, gastroparesis who presented to the emergency department with intractable vomiting. 1. Gastroparesis flare: This has resolved; EGD and HIDA scan were unremarkable. Continue Reglan, Carafate. Stopped PPI given persistent hypomagnesemia. 2. Orthostatic hypotension: The patient was seen and examined by Dr. Leiva, who has recommended midodrine and compression stockings. She is also still on Florinef. Echocardiogram showed a normal EF and normal diastolic function. Orthostats are slightly improved. This has been a long standing issue for the patient prior to admission. At this time, the patient is not symptomatic with standing, so I think she is stable to continue following with her outpatient physicians for further management. She has been cleared by PT. 3. Depression, anxiety and OCD: Continue home Luvox, Seroquel, Klonopin. 4. Diabetes mellitus type 1: Continue home Lantus 15 units every morning at home. We will continue sliding scale insulin. 5. Asthma: currently controlled. Continue as needed albuterol. 6. 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 Prior workup for adrenal insufficiency was unremarkable. PTH level and a.m. cortisol are also normal. Prior FSH and LH levels did not suggest any hypogonadism. 7. Leukocytosis: Initial UA showed 3+ leuk esterase, too numerous to count WBCs , and 1+ bacteria, but the urine culture appeared to be contaminated. She is afebrile, repeat UA is improved. WBC now WNL; I suspect this was reactive secondary to gastroparesis flare. 8. Hypomagnesemia: Replaced IVF. Now WNL. Continue PO mag ox. Stopped PPI. 9. Hypokalemia: Patient has refused all except one dose of the scheduled oral KCl that was ordered for her. She refuses oral KCl when it is ordered for replacement. Replaced with Kruns and the occasional oral dose that the patient will agree to take. Now WNL. DVT prophylaxis: Heparin PHYSICAL EXAMINATION ON DISCHARGE: VITAL SIGNS: Vital Signs Date Time Temp Pulse Resp B/P (MAP) Pulse Ox O2 Delivery O2 Flow Rate FiO2 12/06/16 14:00 98.8 82 16 131/77 (95) 95 Room Air General: Awake, alert, no acute distress HEENT: Normocephalic, atraumatic, extraocular movements intact CV: Regular rate and rhythm Lungs: Clear to auscultation bilaterally Abd: Soft, nontender, nondistended Extremities: No edema Neuro: Alert and oriented 3, normal speech Psych: Normal Mood and affect DISPOSITION: Home DISCHARGE INSTRUCTIONS: Wear compression stockings from when you wake up in the morning until when you go to bed. Follow-up PCP within one week. Follow-up Dr. Carter in one month. Keep all appointments with endocrine. Small frequent meals If symptoms return, or if you experience worsening of your symptoms, please call your doctor or return to the emergency department. ITEMS THAT NEED OUTPATIENT FOLLOWUP: Patient should have a repeat BMP with PCP to ensure that her potassium and magnesium stayed within normal limits Patient was seen and examined by me on the day of discharge, and I spent a total time of greater than 30 minutes on this discharge. Vital Signs/I&Os Vital Signs Date Time Temp Pulse Resp B/P (MAP) Pulse Ox O2 Delivery O2 Flow Rate FiO2 12/06/16 14:00 98.8 82 16 131/77 (95) 95 Room Air I&O- Last 24 Hours up to 6 AM 12/07/16 05:59 Intake Total 960 ml Output Total 1500 ml Balance -540 ml Laboratory Data Labs 24H Laboratory Tests 2 12/06/16 16:09: Magnesium Level 2.2 12/06/16 17:13: Bedside Glucose (Misc Panel) 249H CBC/BMP Laboratory Tests 12/06/16 16:09 FSBS Laboratory Tests Test 12/06/16 17:13 Range/Units Bedside Glucose (Misc Panel) 249 70-105 MG/DL Discharge Medications Scheduled (Richard Kim) 100 Unit/Ml Inj, 15 UNITS SC QAM, (Reported) Fludrocortisone Acetate (Fludrocortisone Acetate) 0.1 Mg Tab, 0.1 MG PO DAILY Fluvoxamine Maleate (Fluvoxamine Maleate) 100 Mg Tab, 100 MG PO QHS, (Reported) Insulin Human Lispro (Humalog) 1 Units/0.01 Ml Inj, 1 DOSE SC AC, (Reported) PER SLIDING SCALE Magnesium Oxide (Magnesium Oxide) 400 Mg Tab, 400 MG PO BID Metoclopramide HCl (Metoclopramide HCl) 10 Mg Tab, 10 MG PO ACHS Midodrine (Midodrine HCl) 2.5 Mg Tab, 2.5 MG PO 8am and 4pm qday Quetiapine Fumerate (Quetiapine Fumarate) 50 Mg Tab, 50 MG PO QHS, (Reported) Sucralfate (Carafate) 1 Gm Tab, 1 GM PO ACHS Scheduled PRN Albuterol Sulfate (Ventolin Hfa) 200 Puff/8 Gm Aers, 2 PUFF INH Q4H PRN for SHORTNESS OF BREATH, (Reported) Clonazepam (Clonazepam) 0.5 Mg Tab, 0.5 MG PO BID PRN for ANXIETY, (Reported) Allergies Coded Allergies: Egg Yolk (Unverified Allergy, Intermediate, Rash, 12/04/15) Bee Venom (Unverified Allergy, Unknown, 07/31/15) Insulin Glargine (Unverified Allergy, Unknown, SKIN RASH, 11/23/16) FROM [facility] INSULIN NUTS (Unverified Allergy, Unknown, 07/31/15) Shellfish Allergy (Unverified Allergy, Unknown, 07/31/15) PEPE LANGFORD Dec 07, 2016 14:19
== END 2016-12-06 18:00 | disposition home or self-care (01) | DRG 48 ==
LOC: M ED 08:50 → M ED INP 15:55 → M MS4PR 22:19 → OBSVTOIN 11-25 09:26 → M ICU 11-27 03:01 → M MS5PR 11-27 13:50
PROVIDERS: ADMIT Internal Medicine; ATTEND Hospitalist
PROC: 0DJ08ZZ Inspection of Upper Intestinal Tract, Via Natural or Artificial Opening Endoscopic (ICD-10-PCS; principal; 2016-11-30 13:30)
DX: E10.43 Type 1 diabetes mellitus with diabetic autonomic (poly)neuropathy (principal); I95.9 Hypotension, unspecified; E87.8 Other disorders of electrolyte and fluid balance, not elsewhere classified; E46 Unspecified protein-calorie malnutrition; K86.1 Other chronic pancreatitis; E83.42 Hypomagnesemia; R11.2 Nausea with vomiting, unspecified; F41.9 Anxiety disorder, unspecified; J45.909 Unspecified asthma, uncomplicated; L28.0 Lichen simplex chronicus; F32.9 Major depressive disorder, single episode, unspecified; Z79.4 Long term (current) use of insulin; Z91.013 Allergy to seafood; Z91.030 Bee allergy status; Z91.012 Allergy to eggs; Z91.018 Allergy to other foods; Z87.440 Personal history of urinary (tract) infections; E87.6 Hypokalemia